=== PATIENT | female | born 1950 | race Caucasian/White ===

== ENCOUNTER 2020-02-20 11:11 | Inpatient (IN) | payer MEDICARE, OTHER ==
[~2020-02-20] VITALS: Ht 165.1 cm; Wt 68.0 kg
[2020-02-20] MEDS ORDERED: ONDANSETRON HCL INJ 2MG/ML 2ML 2 MG/ML VIAL IV STA (12:15)
[2020-02-20] MEDS ORDERED: MORPHINE SULFATE 2 MG/ML SYR 1ML IV STA (12:15)
[2020-02-20] MEDS ORDERED: SODIUM CHLORIDE 0.9% 1000ML 1,000 ML IV STA ×2 (12:15)
[2020-02-20] MEDS ORDERED: PANTOPRAZOLE 40 MG 10ML VIAL IV STA (12:15)
--- OUTSIDE RECORDS SUMMARY | 2020-02-20 12:26 | XMS REPORT | Continuity of Care Document ---
Author Author [facility] t Organization [facility] Address [address] [place] [address] Phone Unavailable Care Team Providers Care Viscosity Inspector Name Role Phone Unavailable Unavailable Payers Payer Name Policy Type Policy Number Effective Date Expiration Date S ource Problems This patient has no known problems. Allergies, Adverse Reactions, Alerts Allergy Name Allergy Type Status Severity Reaction(s) Onset Date Inacti ve Date Treating Clinician Comments Source No Known Allergies DA Active U 2020-02-17 00:00:00 [facility] No Known Allergies DA Active U 2016-10-22 00:00:00 [facility] Medications This patient has no known medications. Procedures This patient has no known procedures. Results Test Description Test Time Test Comments Results Result Comments Source - CT ABD PELVIS W/CONT 2020-02-17 09:39:00 Kike e: BRYN CANCINO [facility] FSED : 1950 Age/S: 69 / F [address] [facility] [address] Unit #: [id number] Loc: [address] Phys: William Alcantar MD [place], [place] [address] Acct: [id number] Dis Date: Status: REG ER PHONE #: Exam Date: 02/17/2020 0853 FAX #: Reason: r sided abd pain, constipation, n/v EXAMS: CPT CODE: [id number] CT ABD PELVIS W/CONT 68762 REASON FOR EXAM: r sided abd pain, constipation, n/v EXAM ORDER DATE: 02/17/2020 8:17 AM Ordering M.DGenoveva: William Alcantar MD PROCEDURE: Axial CT images were acquired through the abdomen/pelvis at 5 mm intervals. Sagittal and coronal reformatted images were generated. Automated exposure control was utilized for this reduction. Phases of contrast: venous and delayed COMPARISON: CT of the abdomen and pelvis October 22, 2016 FINDINGS: Visualized thorax: Mild subsegmental atelectasis in the lingula Hepatobiliary system: Normal Pancreas: Atrophic with mild fatty replacement Spleen: Normal Adrenal glands: Normal Genitourinary system: Prior hysterectomy. Otherwise normal Gastrointestinal tract and appendix: The ascending colon is displaced and located in the midline, also seen on the previous examination.. There is increased mucosal enhancement of the small bowel in the right hemiabdomen. Small hiatal her freeman is present Abdominal vascular structures: Mild atherosclerotic calcifications are present in the abdominal aorta and extend into the iliac arteries Peritoneum and retroperitoneum: No free fluid or free air. No omental or mesenteric masses. No abnormal lymph nodes. Musculoskeletal structures and abdominal wall: Levoscoliosis of the lumbar spine IMPRESSION: Increased mucosal enhancement of the small bowel in the right PAGE 1 Signed Report (CONTINUED) Name: BRYN CANCINO [facility] FSED : 1950 Age/S: 69 / F [address] [facility] Unit #: [id number] Loc: [address] Phys: William Alcantar MD [place], [place] [address] Acct: [id number] Dis Date: Status: REG ER PHONE #: Exam Date: 02/17/2020 0892 FAX #: Reason: r sided abd pain, constipation, n/v EXAMS: CPT CODE: [id number] CT ABD PELVIS W/CONT 42022 <Continued> hemiabdomen. This may represent an infectious or inflammatory enteritis. Displacement of the ascending colon into the midline is again seen and unchanged from the previous exam. Location: [facility] at 0939 Reported and signed by: Gaston Jackson MD CC: William Alcantar MD; Chelita Malik Technologist:Capo Gee CTDI: DLP: Trnscb Date/Time: 02/17/2020 (938) [email or web address] Orig Print D/T: S: 02/17/2020 (0177) PAGE 2 Signed Report URINALYSIS COMPLETE 2020-02-17 09:11:00 Test Item UA COLOR (test code = COLU) YELLOW YELLOW UA APPEARANCE (test code = APPU) CLEAR CLEAR UA GLUCOSE DIPSTICK (test code = DGLUU) NEGATIVE mg/dL NEGATIVE UA BILIRUBIN DIPSTICK (test code = BILU) NEGATIVE NEGATIVE UA KETONE DIPSTICK (test code = KETU) NEGATIVE mg/dL NEGATIVE UA SPECIFIC GRAVITY (test code = SGU) >=1.030 1.001-1.035 UA BLOOD DIPSTICK (test code = TRACY) 2+ (Moderate) NEGATIVE A UA PH DIPSTICK (test code = ALBERTO) 6.0 5.0-8.0 UA PROTEIN DIPSTICK (test code = PROU) NEGATIVE mg/dL Neg-15 UA UROBILINIOGEN DIPSTICK (test code = URO) 0.2 mg/dL 0.0-0.2 UA NITRITE DIPSTICK (test code = ROXANE) NEGATIVE NEGATIVE UA LEUKOCYTE ESTERASE DIPSTICK (test code = LEUU) NEGATIVE uL NEGA TIVE UA MICROSCOPIC NEEDED? (test code = UAMICRO) YES UA WBC (test code = WBCU) 0-5 per HPF 0-5 UA RBC (test code = RBCU) 3-5 per HPF 0-5 A UA EPITHELIAL CELLS (test code = EPIU) Few (2-5/hpf) per HPF Few UA BACTERIA (test code = BACU) FEW per HPF NONE UA MUCUS (test code = MUCU) FEW per LPF NONE-FEW Urine Source? Clean CatchURINALYSIS [id number] 09:10:00* Test Item Value Reference Range Interpretation Comments UA COLOR (test code = COLU) YELLOW YELLOW UA APPEARANCE (test code = APPU) CLEAR CLEAR UA GLUCOSE DIPSTICK (test code = DGLUU) NEGATIVE mg/dL NEGATIVE UA BILIRUBIN DIPSTICK (test code = BILU) NEGATIVE NEGATIVE UA KETONE DIPSTICK (test code = KETU) NEGATIVE mg/dL NEGATIVE UA SPECIFIC GRAVITY (test code = SGU) >=1.030 1.001-1.035 UA BLOOD DIPSTICK (test code = TRACY) 2+ (Moderate) NEGATIVE A UA PH DIPSTICK (test code = ALBERTO) 6.0 5.0-8.0 UA PROTEIN DIPSTICK (test code = PROU) NEGATIVE mg/dL Neg-15 UA UROBILINIOGEN DIPSTICK (test code = URO) 0.2 mg/dL 0.0-0.2 UA NITRITE DIPSTICK (test code = ROXANE) NEGATIVE NEGATIVE UA LEUKOCYTE ESTERASE DIPSTICK (test code = LEUU) NEGATIVE uL NEGA TIVE UA MICROSCOPIC NEEDED? (test code = UAMICRO) UA WBC (test code = WBCU) per HPF 0-5 UA RBC (test code = RBCU) per HPF 0-5 UA EPITHELIAL CELLS (test code = EPIU) per HPF Few UA BACTERIA (test code = BACU) per HPF NONE Urine Source? Clean [id number] 09:07:00* Test Item Value Reference Range Interpretation Comments TROPONIN-I (test code = TROPI) <0.015 ng/mL 0-0.045 N BASIC METABOLIC [id number] 09:06:00* Test Item Value Reference Range Interpretation Comments SODIUM (test code = NA) 142 mmol/L 128-145 N POTASSIUM (test code = K) 3.3 mmol/L 3.5-5.1 L CHLORIDE (test code = CL) 105.0 mmol/L 98-107 N CARBON DIOXIDE (test code = CO2) 31.0 mmol/L 22-29 H ANION GAP (test code = GAP) 9 mmol/L 10-20 L GLUCOSE (test code = GLU) 99 mg/dL 70-110 N BLOOD UREA NITROGEN (test code = BUN) 23 mg/dL 7-22 H GLOMERULAR FILTRATION RATE (test code = GFR) 52 mL/min >=60 Estimated GFR by using Modified MDRD formula.Chronic kidney disease is defined as either kidney damageor GFR <60 mL/min/1.73 m2 for >3 months. CREATININE (test code = CREAT) 1.06 mg/dL 0.55-1.3 N BUN/CREATININE RATIO (test code = BUN/CREA) 21.7 10-20 H CALCIUM (test code = CA) 8.4 mg/dL 8.0-10.5 N HEPATIC FUNCTION [id number] 09:06:00* Test Item Value Reference Range Interpretation Comments TOTAL PROTEIN (test code = PROT) 7.5 gram/dL 6.1-7.8 N ALBUMIN (test code = ALB) 3.8 g/dL 3.3-4.4 N GLOBULIN (test code = GLOB) 3.7 G/DL 1-10 N ALBUMIN/GLOBULIN RATIO (test code = A/G) 1.0 0.75-1.50 N BILIRUBIN TOTAL (test code = BILT) 0.40 mg/dL 0.2-1.2 N BILIRUBIN DIRECT (test code = BILD) 0.10 mg/dL 0.0-0.30 N SGOT/AST (test code = AST) 21 U/L 10-39 N SGPT/ALT (test code = ALT) 16 U/L 10-69 N ALKALINE PHOSPHATASE TOTAL (test code = ALKP) 114 U/L 50-139 N [id number] 09:06:00* Test Item Value Reference Range Interpretation Comments LIPASE (test code = LIP) 283 Unit/L 144-286 N BASIC METABOLIC [id number] 08:44:00* Test Item Value Reference Range Interpretation Comments SODIUM (test code = NA) 142 mmol/L 128-145 N POTASSIUM (test code = K) 3.3 mmol/L 3.5-5.1 L CHLORIDE (test code = CL) 105.0 mmol/L 98-107 N CARBON DIOXIDE (test code = CO2) 31.0 mmol/L 22-29 H ANION GAP (test code = GAP) 9 mmol/L 10-20 L GLUCOSE (test code = GLU) 99 mg/dL 70-110 N BLOOD UREA NITROGEN (test code = BUN) 23 mg/dL 7-22 H GLOMERULAR FILTRATION RATE (test code = GFR) 52 mL/min >=60 Estimated GFR by using Modified MDRD formula.Chronic kidney disease is defined as either kidney damageor GFR <60 mL/min/1.73 m2 for >3 months. CREATININE (test code = CREAT) 1.06 mg/dL 0.55-1.3 N BUN/CREATININE RATIO (test code = BUN/CREA) 21.7 10-20 H CALCIUM (test code = CA) 8.4 mg/dL 8.0-10.5 N HEPATIC FUNCTION [id number] 08:44:00* Test Item Value Reference Range Interpretation Comments TOTAL PROTEIN (test code = PROT) gram/dL 6.4-8.2 ALBUMIN (test code = ALB) g/dL 3.4-5.0 GLOBULIN (test code = GLOB) G/DL 1-10 ALBUMIN/GLOBULIN RATIO (test code = A/G) 0.75-1.50 BILIRUBIN TOTAL (test code = BILT) mg/dL 0.0-1.0 BILIRUBIN DIRECT (test code = BILD) mg/dL 0.0-0.20 SGOT/AST (test code = AST) IUnit/L 15-37 SGPT/ALT (test code = ALT) IUnit/L 12-78 ALKALINE PHOSPHATASE TOTAL (test code = ALKP) IUnit/L 45-117 [id number] 08:44:00* Test Item Value Reference Range Interpretation Comments LIPASE (test code = LIP) U/L 73.0-393.0 CBC W/O [id number] 08:43:00* Test Item Value Reference Range Interpretation Comments WHITE BLOOD CELL (test code = WBC) 4.9 K/mm3 4.5-12.5 N RED BLOOD CELL (test code = RBC) 5.07 mill/mm3 3.7-5.2 N HEMOGLOBIN (test code = HGB) 14.3 gram/dL 11.5-15.5 N HEMATOCRIT (test code = HCT) 45.8 % 36.0-46.0 N MEAN CELL VOLUME (test code = MCV) 90.3 fL 80-98 N MEAN CELL HGB (test code = MCH) 28.2 picogram 27.0-33.0 N MEAN CELL HGB CONCETRATION (test code = MCHC) 31.2 gram/dL 33.0-36. 0 L RED CELL DISTRIBUTION WIDTH (test code = RDW) 13.0 % 11.6-16. 2 N RED CELL DISTRIBUTION WIDTH SD (test code = RDW-SD) 44.5 fL 37 .0-51.0 N PLATELET COUNT (test code = PLT) 146 K/mm3 150-450 L MEAN PLATELET VOLUME (test code = MPV) 9.3 fL 6.7-11.0 N
[2020-02-20 12:27] LABS: BASOPHILS # (AUTO) 0.1 (0.0-0.1); BASOPHILS % 0.4 % (0.0-1.0); EOSINOPHILS % 0.1 % (0.0-6.0); HEMATOCRIT 55.5 % (34.2-44.1); LYMPHOCYTES # (AUTO) 1.1 (1.0-3.2); LYMPHOCYTES % 8.3 % (18.0-39.1); MEAN CORPUSCULAR HEMOGLOBIN 28.3 pg (28-32); MEAN CORPUSCULAR HGB CONC 32.4 g/dL (31-35); MEAN CORPUSCULAR VOLUME 87.4 fL (81-99); MONOCYTES % 7.6 % (4.4-11.3); NEUTROPHILS # (AUTO) 11.2 (2.1-6.9); NEUTROPHILS % 83.2 % (38.7-80.0); PLATELET COUNT 239 x10e3/uL (140-360); RED BLOOD COUNT 6.35 x10e6/uL (3.6-5.1); RED CELL DISTRIBUTION WIDTH 14.3 % (11.7-14.4)
--- NOTE | 2020-02-20 12:45 | Diagnostic Imaging Report ---
TECHNIQUE: Frontal view of the chest. INDICATION: ^abd pain ^[id number] ^1226 COMPARISON: None DISCUSSION: Limited evaluation due to portable technique. Lines and hardware: Overlying EKG leads are noted. Heart and mediastinum: Cardiac silhouette is within normal limits for size. Trachea projects midline. Vascularity is within normal limits. Lungs and pleura: No focal airspace consolidation. No pleural effusion. No pneumothorax. Mild basilar atelectasis is noted at the medial lung bases. Soft tissues and bones: No acute abnormality. IMPRESSION: Negative for acute intrathoracic process. Signed by: Rainer Bates MD on 02/20/2020 12:42 PM
[2020-02-20 13:06] LABS: INR 0.95; PROTHROMBIN TIME 13.2 seconds (11.9-14.5)
[2020-02-20 13:07] LABS: PARTIAL THROMBOPLASTIN TIME 25.7 seconds (23.8-35.5)
[2020-02-20 13:18] LABS: ALBUMIN 4.6 g/dL (3.5-5.0); ALBUMIN/GLOBULIN RATIO 1.1 (0.8-2.0); ANION GAP 26.4 mmol/L (8-16); CALCIUM 9.8 mg/dL (8.4-10.2); CREATININE, SERUM 4.03 mg/dL (0.57-1.11); MAGNESIUM 2.3 MG/DL (1.3-2.1); POTASSIUM 4.4 mmol/L (3.5-5.1)
[2020-02-20 13:24] LABS: CREATINE KINASE MB 3.5 ng/mL (0-5.0)
[2020-02-20] MEDS ORDERED: DIATRIZOATE MEGL/DIATRIZOA SOD 30 ML BTL PO ONE (13:41)
[2020-02-20] MEDS ORDERED: PIPER-TAZ 3.375 GM 50 ML IV SCH (14:00)
[2020-02-20] MEDS ORDERED: PROMETHAZINE HCL (IM) 25 MG/ML VIAL IM ONE (14:59)
[2020-02-20] MEDS ORDERED: PROMETHAZINE 12.5MG/ NACL 0.9% 12.5 MG/50 ML BAG IV ONE (15:00)
--- NOTE | 2020-02-20 15:22 | Diagnostic Imaging Report ---
EXAM: CT Abdomen and Pelvis WITHOUT intravenous contrast INDICATION: Nausea and vomiting COMPARISON: None. TECHNIQUE: Abdomen and pelvis were scanned utilizing a multidetector helical scanner from the lung base to the pubic symphysis without administration of IV contrast. Coronal and sagittal reformations were obtained. Routine technique was performed. IV CONTRAST: None ORAL CONTRAST: Gastrografin COMPLICATIONS: None RADIATION DOSE: Total DLP: 270 mGy*cm Dose modulation, iterative reconstruction, and/or weight based adjustment of the mA/kV was utilized to reduce the radiation dose to as low as reasonably achievable. FINDINGS: Evaluation is limited due to lack of IV and and small amount of oral contrast ingested. LOWER THORAX: Normal. HEPATOBILIARY: No focal hepatic lesions. No biliary ductal dilatation. The gallbladder appears unremarkable. SPLEEN: No splenomegaly. PANCREAS: No focal masses or ductal dilatation. ADRENALS: No adrenal nodules. KIDNEYS/URETERS: No hydronephrosis, stones, or solid mass lesions. PELVIC ORGANS/BLADDER: Urinary bladder is decompressed limiting evaluation. Uterus and ovaries are surgically absent. PERITONEUM / RETROPERITONEUM: No free air or fluid. LYMPH NODES: No lymphadenopathy. VESSELS: Unremarkable. GI TRACT: Limited evaluation due to lack of IV contrast. Moderate hiatal hernia is noted. Contrast is identified within the stomach and duodenum. Malrotation is noted with the small bowel loops centered within the right upper to mid abdomen. The right colon is identified in the midline coursing superiorly. The colon is predominantly located on the left side of the abdomen. There are focal dilated small bowel loops in the right upper quadrant with fluid filled mildly prominent small bowel loops in the right lower quadrant. No discrete transition point is identified distally or proximally. The duodenum and jejunum are dilated. The terminal ileum is not dilated. Colon is decompressed limiting evaluation. No surrounding inflammatory changes are identified. BONES AND SOFT TISSUES: Negative for acute osseous abnormality. Left convex rotoscoliosis of the lumbar spine is noted. No suspicious lytic or blastic lesion. Advanced degenerative changes of the lumbar spine are noted. Soft tissues are unremarkable. IMPRESSION: Limited due to lack of IV contrast. Also only a small amount of oral contrast is identified within the stomach and proximal duodenum 1. Dilated and fluid-filled small bowel loops within the right upper to mid abdomen. No discrete transition point is identified. The duodenum and jejunum are dilated and fluid-filled. The ileum is decompressed. Findings are concerning for focal infection/ileus versus partial small bowel obstruction. Negative for pneumoperitoneum. 2. Underlying congenital malrotation, the small bowel loops are located in the right hemiabdomen and the colon is located in the left hemiabdomen. 3. Moderate hiatal hernia. Signed by: Rainer Bates MD on 02/20/2020 3:19 PM
[2020-02-20] MEDS ORDERED: BENZOCAINE/TETRACAINE/BUTAMBEN AERO SPRAY 56 GM CAN TOP ONE (16:00)
--- NOTE | 2020-02-20 16:06 | Emergency Department Note ---
History of Present Illnes History of Present Illness Chief Complaint: COVID PUI History of Present Illness This is a 69 year old female X 3 DAYS, C/O OF RIGHT UPPER QUADRANT PAIN THAT RADIATES ALL OVER ABDOMEN. STATES SHE HAS VOMITED 100 TIMES. NO BM X 3 DAYS AFC, TOLD SHE HAD COLITIS AND SENT HOME WITH BATRIM/FLAGYL WENT TO PATIENTS IN [place] AND TOLD SHE HAD FLUID IN THE INTESTINES. Historian: Patient Arrival Mode: Car Additional Treatment JINRIKSHA DRIVER: ZOFRAN Environmental Designer Required: No Onset (how long ago): day(s) (3) Location: ABDOMEN Quality: PAIN Radiation: Reports non-radiation Severity: moderate Onset quality: gradual Timing of current episode: constant Progression: worsening Chronicity: new Context: Denies recent illness Relieving factors: none Exacerbating factors: none Associated symptoms: Reports nausea/vomiting, Reports other (NO BM X 3 DAYS) Past Medical/Family History Physician Review I have reviewed the patient's past medical and family history. Any updates have been documented here. Past Medical History Recent Fever: No Clinical Suspicion of Infectio: No New/Unexplained Change in Ment: No Past Medical History: Hypertension Past Surgical History: Appendectomy, Hysterectomy, T&A Social History Smoking Cessation: Never Smoker Alcohol Use: Occasional Any Illegal Drug Use: No TB Exposure/Symptoms: No Physically hurt or threatened: No Family History Family history of heart diseas: No Other Any Pre-Existing Lines (PICC,: No Review of Systems Review of Systems Constitutional: Reports no symptoms EENTM: Reports no symptoms Cardiovascular: Reports no symptoms Respiratory: Reports no symptoms Gastrointestinal: Reports as per HPI Genitourinary: Reports no symptoms Musculoskeletal: Reports no symptoms Integumentary: Reports no symptoms Neurological: Reports no symptoms Psychological: Reports no symptoms Endocrine: Reports no symptoms Hematological/Lymphatic: Reports no symptoms Physical Exam Related Data Allergies: Coded Allergies: No Known Allergies (Unverified , 02/20/20) Triage Vital Signs Vital Signs Date Time Temp Pulse Resp B/P (MAP) Pulse Ox O2 Delivery O2 Flow Rate FiO2 02/20/20 11:43 97.9 113 18 74/59 99 Room Air Vital signs reviewed: Yes Physical Exam CONSTITUTIONAL Constitutional: Present well-developed, Present well-nourished HENT HENT: Present normocephalic, Present atraumatic, Present mucosae dry HENT L/R: Present left ext ear normal, Present right ext ear normal EYES Eyes: Reports PERRL, Reports conjunctivae normal NECK Neck: Present ROM normal PULMONARY Pulmonary: Present effort normal, Present breath sounds normal CARDIOVASCULAR Cardiovascular: Present regular rhythm, Present heart sounds normal, Present capillary refill normal, Present normal rate GASTROINTESTINAL Abdominal: Present soft, Present distension (MILD DISTENSION, NOT HYPERTYMPANIC BUT DECR BOWEL SOUNDS), Present tender (MILD DIFFUSE TENDERNESS WITHOUT R/G); Absent guarding, Absent rebound GENITOURINARY Genitourinary: Present exam deferred SKIN Skin: Present warm, Present dry MUSCULOSKELETAL Musculoskeletal: Present ROM normal NEUROLOGICAL Neurological: Present alert, Present oriented x 3, Present no gross motor or sensory deficits PSYCHOLOGICAL Psychological: Present mood/affect normal, Present judgement normal Results Laboratory Result Diagram: 02/20/20 1211 02/20/20 1240 Laboratory Laboratory Tests Test 02/20/20 12:40 02/20/20 12:11 Prothrombin Time 13.2 seconds (11.9-14.5) Prothromb Time International Ratio 0.95 Activated Partial Thromboplast Time 25.7 seconds (23.8-35.5) Sodium Level 137 mmol/L (136-145) Potassium Level 4.4 mmol/L (3.5-5.1) Chloride Level 90 mmol/L (98-107) Carbon Dioxide Level 25 mmol/L (22-29) Anion Gap 26.4 mmol/L (8-16) Blood Urea Nitrogen 35 mg/dL (7-26) Creatinine 4.03 mg/dL (0.57-1.11) Estimat Glomerular Filtration Rate 11 ML/MIN (60-) BUN/Creatinine Ratio 9 (6-25) Glucose Level 151 mg/dL (74-118) Lactic Acid Level 3.5 mmol/L (0.5-2.0) Calcium Level 9.8 mg/dL (8.4-10.2) Magnesium Level 2.3 MG/DL (1.3-2.1) Total Bilirubin 0.7 mg/dL (0.2-1.2) Aspartate Amino Transf (AST/SGOT) 23 IU/L (5-34) Alanine Aminotransferase (ALT/SGPT) 14 IU/L (0-55) Alkaline Phosphatase 107 IU/L (40-150) Creatine Kinase 111 IU/L (29-168) Creatine Kinase MB 3.50 ng/mL (0-5.0) Troponin I 0.054 ng/mL (0-0.300) Total Protein 8.7 g/dL (6.5-8.1) Albumin 4.6 g/dL (3.5-5.0) Globulin 4.1 g/dL (2.3-3.5) Albumin/Globulin Ratio 1.1 (0.8-2.0) Amylase Level 86 U/L (25-125) Lipase 29 U/L (8-78) White Blood Count 13.48 x10e3/uL (4.8-10.8) Red Blood Count 6.35 x10e6/uL (3.6-5.1) Hemoglobin 18.0 g/dL (12.0-16.0) Hematocrit 55.5 % (34.2-44.1) Mean Corpuscular Volume 87.4 fL (81-99) Mean Corpuscular Hemoglobin 28.3 pg (28-32) Mean Corpuscular Hemoglobin Concent 32.4 g/dL (31-35) Red Cell Distribution Width 14.3 % (11.7-14.4) Platelet Count 239 x10e3/uL (140-360) Neutrophils (%) (Auto) 83.2 % (38.7-80.0) Lymphocytes (%) (Auto) 8.3 % (18.0-39.1) Monocytes (%) (Auto) 7.6 % (4.4-11.3) Eosinophils (%) (Auto) 0.1 % (0.0-6.0) Basophils (%) (Auto) 0.4 % (0.0-1.0) Neutrophils # (Auto) 11.2 (2.1-6.9) Lymphocytes # (Auto) 1.1 (1.0-3.2) Monocytes # (Auto) 1.0 (0.2-0.8) Eosinophils # (Auto) 0.0 (0.0-0.4) Basophils # (Auto) 0.1 (0.0-0.1) Absolute Immature Granulocyte (auto 0.05 x10e3/uL (0-0.1) Lab results reviewed: Yes Imaging Imaging results reviewed: Yes Procedures 12 Lead ECG Interpretation ECG Interpretation : ECG: ECG 1 Environmental Designer: Interpreted by ED physician Date: Feb 20, 2020 Time: 12:53 Rhythm: sinus rhythm Rate: normal (77) QRS axis: normal ST segments normal: Yes T waves normal: Yes Q waves: II, III, aVF, V5, V6 Clinical Impression: abnormal ECG Additional Comments POOR RWP Assessment & Plan Medical Decision Making MDM ABD PAIN, N/V/CONSTIPATION AND APPEARS DEHYDRATED - CBC, CHEM, UA, CX'S, LACTIC, ECG, CARDIACS, CXR, CT A/P - EVAL FOR SEPSIS, BOWEL OBSTRUCTION, ELECTROLYTE ABNL, RENAL INSUFF, SEPSIS, COLITIS, DIVERTICULITIS. IVF RESUSCITATION, REASSESS Reassessment Reassessment ADMIT TO DR LOPEZ - HE WILL TAKE CARE OF CONSULTANTS Assessment & Plan Final Impression: (1) Dehydration (2) Renal failure (3) Abdominal pain Depart Disposition: ADMITTED Last Vital Signs Date Time Temp Pulse Resp B/P (MAP) Pulse Ox O2 Delivery O2 Flow Rate FiO2 02/20/20 13:03 81 19 106/63 99 Room Air 02/20/20 11:43 97.9 Medications in the ED Pantoprazole Sodium 40 mg ONCE STAT IV Last administered on 02/20/20at 12:20; Admin Dose 40 MG; Start 02/20/20 at 12:15; Stop 02/20/20 at 12:21; Status DC Morphine Sulfate 2 mg ONCE STAT IV Last administered on 02/20/20at 12:20; Admin Dose 2 MG; Start 02/20/20 at 12:15; Stop 02/20/20 at 12:21; Status DC Ondansetron HCl 4 mg ONCE STAT IV Last administered on 02/20/20at 12:20; Admin Dose 4 MG; Start 02/20/20 at 12:15; Stop 02/20/20 at 12:21; Status DC Sodium Chloride 1,000 ml @ 0 mls/hr Q0M STAT IV Last administered on 02/20/20at 12:24; Admin Dose 1,000 MLS/HR; Start 02/20/20 at 12:15; Stop 02/20/20 at 12:18; Status DC Sodium Chloride 1,000 ml @ 0 mls/hr Q0M STAT IV Last administered on 02/20/20at 12:24; Admin Dose 1,000 MLS/HR; Start 02/20/20 at 12:15; Stop 02/20/20 at 12:18; Status DC Piperacillin Sod/ Tazobactam Sod 50 ml @ 50 mls/hr 0200,0800,1400,1999 IV Last administered on 02/20/20at 15:25; Admin Dose 50 MLS/HR; Start 02/20/20 at 14:00; Stop 02/27/20 at 13:59 Diatrizoate Meglum/ Diatrizoate Sod 30 ml STK-MED ONCE PO ; Start 02/20/20 at 13:41; Stop 02/20/20 at 13:35; Status DC Promethazine HCl 25 mg STK-MED ONCE IM ; Start 02/20/20 at 14:59; Stop 02/20/20 at 14:53; Status DC RENA CISSE MD Feb 20, 2020 16:06
[2020-02-20] MEDS ORDERED: BENZOCAINE/TETRACAINE/BUTAMBEN AERO SPRAY 56 GM CAN ONE (16:33)
--- OUTSIDE RECORDS SUMMARY | 2020-02-20 16:52 | XMS REPORT | Continuity of Care Document ---
Author Author [facility] t Organization [facility] Address [address] [place] [address] Phone Unavailable Care Team Providers Care Pilot Safety Inspector Name Role Phone Rodolfo CISSE Attphys Unavailable Payers Payer Name Policy Type Policy Number Effective Date Expiration Date S ource Problems This patient has no known problems. Allergies, Adverse Reactions, Alerts Allergy Name Allergy Type Status Severity Reaction(s) Onset Date Inacti ve Date Treating Clinician Comments Source No Known Allergies DA Active U 2020-02-17 00:00:00 [facility] No Known Allergies DA Active U 2016-10-22 00:00:00 [facility] Medications This patient has no known medications. Procedures This patient has no known procedures. Results Test Description Test Time Test Comments Results Result Comments Source CT ABDOMEN/PELVIS WO 2020-02-20 15:12:00 [place] [address] Patient Name: BRYN CANCINO MR #: [id number] : 1950 Age/Sex: 69/F Req #: [id number] Adm Physician: Ordered by: RENA CISSE MD Report #: [id number] Location: ER Room/Bed: Procedure: [id number] CT/CT ABDOMEN/PELVIS WO Exam Date: 02/20/20 Exam Time: 1445 REPORT STATUS: Signed EXAM: CT Abdomen and Pelvis WITHOUT intravenous contrast INDICATION: Nausea and vomiting COMPARISON: None. TECHNIQUE: Abdomen and pelvis were scanned utilizing a multidetector helical scanner from the lung base to the pubic symphysis without administr ation of IV contrast. Coronal and sagittal reformations were obtained. Routine technique was performed. IV CONTRAST: None ORAL CONTRAST: Gastrografin COMPLICATIONS: None RADIATION DOSE: Total DLP: 270 mGy*cm Dose modulation, iterative reconstruction, and/or weight based adjustment of the mA/kV was utilized to reduce the radiation dose to as low as reasonably achievable. FINDINGS: Evaluation is limited due to lack of IV and and small amount of oral contrast ingested. LOWER THORAX: Normal. HEPATOBILIARY: No focal hepatic lesions. No biliary ductal dilatation. The gallbladder appears unremarkable. SPLEEN: No splenomegaly. PANCREAS: No focal masses or ductal dilatation. ADRENALS: No adrenal nodules. KIDNEYS/URETERS: No hydronephrosis, stones, or solid mass lesions. PELVIC ORGANS/BLADDER: Urinary bladder is decompressed limiting evaluation. Uterus and ovaries are surgically absent. PERITONEUM / RETROPERITONEUM: No free air or fluid. LYMPH NODES: No lymphadenopathy. VESSELS: Unremarkable. GI TRACT: Limited evaluation due to lack of IV contrast. Moderate hiatal hernia is noted. Contrast is identified within the stomach and duodenum. Malrotation is noted with the small bowel loops centered within the right upper to mid abdomen. The right colon is identified in the midline coursing superiorly. The colon is predominantly located on the left side of the abdomen. There are focal dilated small bowel loops in the right upper quadrant with fluid filled mildly prominent small bowel loops in the right lower quadrant. No discrete transition point is identified distally or proximally. The duodenum and jejunum are dilated. The terminal ileum is not dilated. Colon is decompressed limiting evaluation. No surrounding inflammatory changes are identified. BONES AND SOFT TISSUES: Negative for acute osseous abnormality. Left convex rotoscoliosis of the lumbar spine is noted. No suspicious lytic or blastic lesion. Advanced degenerative changes of the lumbar spine are noted. Soft tissues are unremarkable. IMPRESSION: Limited due to lack of IV contrast. Also only a small amount of oral contrast is identified within the stomach and proximal duodenum 1. Dilated and fluid- filled small bowel loops within the right upper to mid abdomen. No discrete transition point is identified. The duodenum and jejunum are dilated and fluid-filled. The ileum is decompressed. Findings are concerning for focal infection/ileus versus partial small bowel obstruction. Negative for pneumoperitoneum. 2. Underlying congenital malrotation, the small bowel loops are located in the right hemiabdomen and the colon is located in the left hemiabdomen. 3. Moderate hiatal hernia. Signed by: Dwayne Bates MD on 02/20/2020 3:19 PM Dictated By: DWAYNE BATES MD 18 Transcribed By: RIZWANA on 02/20/201518 COPY TO: RENA CISSE MD CHEST SINGLE (PORTABLE) 2020-02-20 12:41:00 [place] [address] Patient Name: BRYN CANCINO MR #: [id number] : 1950 Age/Sex: 69/F Req #: [id number] Adm Physician: Ordered by: RENA CISSE MD Report #: [id number] Location: ER Room/Bed: Procedure: [id number] DX/CHEST SINGLE (PORTABLE) Exam Date: 02/20/20 Exam Time: 1226 REPORT STATUS: Signed TECHNIQUE: Frontal view of the chest. INDICATION: abd pain [id number] 1226 COMPARISON: None DISCUSSION: Limited evaluation due to portable technique. Lines and hardware: Overlying EKG leads are noted. Heart and mediastinum: Cardiac si lhouette is within normal limits for size. Trachea projects midline. Vascularity is within normal limits. Lungs and pleura: No focal airspace consolidation. No pleural effusion. No pneumothorax. Mild basilar atelectasis is noted at the medial lung bases. Soft tissues and bones: No acute abnormality. IMPRESSION: Negative for acute intrathoracic process. Signed by: Dwayne Bates MD on 02/20/2020 12:42 PM Dictated By: DWAYNE BATES MD 124 Transcribed By: RIZWANA on 02/20/201241 COPY TO: RENA CISSE MD - CT ABD PELVIS W/CONT 2020-02-17 09:39:00 Nam e: BRYN CANCINO [facility] FSED : 1950 Age/S: 69 / F [address] [facility] Unit #: [id number] Loc: [address] Phys: William Alcantar MD [place], [place] [address] Acct: [id number] Dis Date: Status: REG ER PHONE #: Exam Date: 02/17/2020 08 FAX #: Reason: r sided abd pain, constipation, n/v EXAMS: CPT CODE: [id number] CT ABD PELVIS W/CONT 02521 REASON FOR EXAM: r sided abd pain, constipation, n/v EXAM ORDER DATE: 02/17/2020 8:17 AM Ordering M.D.: William Alcantar MD PROCEDURE: Axial CT images [...] 1 Signed Report (CONTINUED) Name: BRYN CANCINO FSED : 1950 Age/S: 69 / F [address] [address] Unit #: [id number] Loc: [address] Phys: William Alcantar MD [place], [place] [address] Acct: [id number] Dis Date: Status: REG ER PHONE #: Exam Date: 02/17/2020 5834 FAX #: Reason: r sided abd pain, constipation, n/v EXAMS: CPT CODE: [id number] CT ABD PELVIS W/CONT 68[address] <Continued> hemiabdomen. This may represent an infectious or inflammatory enteritis. Displacement of the ascending colon into the midline is again seen and unchanged from the previous exam. Location: [facility] at 0939 Reported and signed by: Gaston Jackson MD CC: William Alcantar MD; Chelita Malik Technologist:Capo Gee CTDI: DLP: Trnscb Date/Time: 02/17/2020 (0939) [email or web address] Orig Print D/T: S: 02/17/2020 (0942) PAGE 2 Signed Report URINALYSIS COMPLETE 2020-02-17 [...] per LPF NONE-FEW Urine Source? Clean CatchURINALYSIS [id number] 09:10:00* Test Item Value Reference Range Interpretation [...] BACU) per HPF NONE Urine Source? Clean [id number] 09:07:00* Test Item Value Reference Range Interpretation Comments TROPONIN-I (test code = TROPI) <0.015 ng/mL 0-0.045 N BASIC METABOLIC [id number] 09:06:00* Test Item Value Reference Range Interpretation [...] CA) 8.4 mg/dL 8.0-10.5 N HEPATIC FUNCTION [id number] 09:06:00* Test Item Value Reference Range Interpretation [...] code = ALKP) 114 U/L 50-139 N [id number] 09:06:00* Test Item Value Reference Range Interpretation Comments LIPASE (test code = LIP) 283 Unit/L 144-286 N BASIC METABOLIC [id number] 08:44:00* Test Item Value Reference Range Interpretation [...] CA) 8.4 mg/dL 8.0-10.5 N HEPATIC FUNCTION [id number] 08:44:00* Test Item Value Reference Range Interpretation [...] TOTAL (test code = ALKP) IUnit/L 45-117 [id number] 08:44:00* Test Item Value Reference Range Interpretation Comments LIPASE (test code = LIP) U/L 73.0-393.0 CBC W/O [id number] 08:43:00* Test Item Value Reference Range Interpretation [...]
[2020-02-20] MEDS: SODIUM CHLORIDE 0.9% 1000ML 1,000 ML IV SCH ×2 (16:53→23:40)
[2020-02-20] MEDS: METRONIDAZOLE 500MG/NS 100ML 100 ML IV SCH ×2 (16:53→23:45)
[2020-02-20] MEDS: MORPHINE SULFATE 2 MG/ML SYR 1ML IV PRN ×2 (16:53→23:00)
[2020-02-20 17:00] LABS: BILIRUBIN,URINE NEGATIVE (NEGATIVE); CLARITY,URINE SL CLOUDY (CLEAR); COLOR,URINE YELLOW (YELLOW); KETONES,URINE TRACE (NEGATIVE); LEUKOCYTE ESTERASE ,URINE NEGATIVE (NEGATIVE); NITRITE,URINE NEGATIVE (NEGATIVE); PROTEIN,URINE DIPSTICK 1+ (NEGATIVE); URINE UROBILINOGEN 0.2 mg/dL (0.2 - 1)
[2020-02-20 17:10] LABS: BACTERIA,URINE MANY /HPF
--- NOTE | 2020-02-20 17:53 | History and Physical ---
CHIEF COMPLAINT: "I can't stop vomiting." HISTORY OF PRESENT ILLNESS: This is a 69-year-old white woman, who presents to [facility] with a 3-4 day history of intractable nausea and vomiting. The patient also complains of intense midepigastric pain. The patient states she went to a local freestanding emergency room on Thursday, February 17, 2020, and was told she had colitis and was sent home with diagnosis of colitis. The patient states her symptoms only worsened over the weekend. In the emergency room, on this admission the patient was found have BUN and creatinine of 35 and 4.03 respectively. The patient's lactic acid level of 3.5. The patient's amylase and lipase were 86 and 29 respectively. The patient's serum bicarbonate was 25. The patient's potassium was 4.4. The patient's white blood cell count was 13,400 with 83% segmented neutrophils. Hemoglobin is 18 g/dL. The patient underwent a CT of the abdomen and pelvis in the emergency room without contrast that revealed moderate hiatal hernia as well as dilated fluid- filled small bowel loops within the right upper to mid abdomen. No discrete transition point was identified though. The duodenum and jejunum are dilated and fluid-filled. The ileum is decompressed. The radiologist felt these findings were concerning for focal infection/ileus versus partial small-bowel obstruction. No obvious pneumoperitoneum was appreciated on CT abdomen and pelvis. The patient was admitted for further evaluation and treatment. REVIEW OF SYSTEMS: GENERAL: Weight has been stable. No fever or chills. HEENT: No headaches. No vision changes. CARDIOVASCULAR SYSTEM: No chest pain. No shortness of breath or cough. GI: Intractable nausea and vomiting for last three to four days. No diarrhea. The patient states she has also had constipation for last six days. : No UTI symptoms. The patient stated she has urinated only minimally over the last few days. NEUROMUSCULAR: No limb weakness or numbness. PAST MEDICAL HISTORY: 1. Hypertensive heart disease. 2. Tobacco abuse. 3. Chronic bronchitis. 4. Urinary incontinence. PAST SURGICAL HISTORY: 1. Total abdominal hysterectomy with bilateral salpingo-oophorectomy in 1989. 2. Breast reduction in 1994. 2. Appendectomy and tonsillectomy as a child. FAMILY HISTORY: Mother has history of hypertension, COPD, and chronic back pain. SOCIAL HISTORY: This woman is , lives with . The patient is retired. She is a heavy tobacco smoker approximately one pack per day for the last 45 years. The patient denies any alcohol use. MEDICATIONS: 1. Lotrel 5/10 once daily. 2. Vitamin D3 5000 units daily. ALLERGIES: NO KNOWN DRUG ALLERGIES. PHYSICAL EXAMINATION: GENERAL: She is awake, alert and fully oriented. She is very pleasant and cooperative with exam. VITAL SIGNS: Height is 5 feet, 5 inches, weight is 150 pounds, BMI 25. Blood pressure is 106/63, on arrival in the emergency room 74/59, pulse currently is 82, on arrival to emergency room was 113, temperature 97.9, and oxygen saturation 99% on room air, respiratory rate 18. INTEGUMENTARY: Skin is warm and dry. No pallor, jaundice or diaphoresis. HEENT: Anicteric sclerae. Dry mucous membranes. The patient has a nasogastric tube in place. NECK: Supple. CARDIOVASCULAR: Tachycardic rate. Regular rate and rhythm with S4 gallop. LUNGS: No rales. No rhonchi or wheezes. ABDOMEN: Soft, it is somewhat distended. She has tenderness in the mid epigastric area. Bowel sounds are hypoactive. EXTREMITIES: No edema or deformity. NEUROLOGIC: Intact. DIAGNOSES: 1. Sepsis, likely secondary to ileitis. 2. Small bowel obstruction. 3. Hiatal hernia. 4. Hypertensive heart disease. 5. Tobacco abuse. 6. Chronic bronchitis. 7. Acute renal insufficiency from acute tubular necrosis. PLAN: 1. Hold blood pressure medications, particularly MARIANNE inhibitors since the patient has acute renal insufficiency. 2. Intravenous fluids. 3. Agree with nasogastric tube placement. 4. Consult General Surgery. 5. Continue intravenous antibiotics. 6. Follow renal function and electrolytes. 7. Repeat plain film abdominal series in the morning to assess likely bowel obstruction. 8. Urine for culture and stain as well as check for casts since she likely has acute tubular necrosis. I spent 50 minutes in care of the patient. MD LUKE Gonzalez/TAVIA /[id number] JOCE
[2020-02-20] MEDS: SODIUM CHLORIDE 0.9% 250ML IRRIG IR SCH ×3 (18:50→23:25)
[2020-02-20 19:42] LABS: AMPHETAMINES SCREEN,URINE NEGATIVE (NEGATIVE); BENZODIAZEPINES SCREEN,URINE NEGATIVE (NEGATIVE); PHENCYCLIDINE SCREEN,URINE NEGATIVE (NEGATIVE)
[2020-02-20 22:20] VITALS: BP 100/72
[2020-02-20] MEDS: ONDANSETRON HCL INJ 2MG/ML 2ML 2 MG/ML VIAL IV PRN (23:00)
[2020-02-20] MEDS: PIPERACILLIN/TAZO 2.25 GM 50 ML IV SCH (23:00)
[2020-02-20 23:40] VITALS: BP 100/72
[2020-02-20 23:45] VITALS: BP 100/72
[2020-02-21] VITALS (8 sets, daily range): BP systolic 92–119; BP diastolic 56–78
--- NOTE | 2020-02-21 | NUR ---
RECEIVED PATIENT FROM ER IN STABLE CONDITION, NO SIGNS OF DISTRESS NOTED. IV FLUIDS ARE RUNNING AT ORDERED RATE AND PATIENT VOICES PAIN AT A LEVEL OF 8, WAS MEDICATED ORDERED. NG TUBE IS INTACT AND RUNNING AT LOW SUCTION, URINARY CATHETER IS INTACT WELL, PATENT AND FLOWING, CLEAR YELLOW URINE NOTED. BED IS IN LOW POSITION, BOTH SIDE RAILS ARE UP, CALL LIGHT IS WITHIN EASY REACH, WILL CONTINUE TO MONITOR.
[2020-02-21] MEDS: SODIUM CHLORIDE 0.9% 250ML IRRIG IR SCH ×5 (05:00→20:34)
[2020-02-21 05:54] LABS: BASOPHILS % 0.2 % (0.0-1.0); EOSINOPHILS # (AUTO) 0.1 (0.0-0.4); EOSINOPHILS % 1.3 % (0.0-6.0); HEMATOCRIT 39.6 % (34.2-44.1); HEMOGLOBIN 12.5 g/dL (12.0-16.0); LYMPHOCYTES % 18.8 % (18.0-39.1); MEAN CORPUSCULAR HGB CONC 31.6 g/dL (31-35); MEAN CORPUSCULAR VOLUME 88.8 fL (81-99); MONOCYTES # (AUTO) 0.6 (0.2-0.8); MONOCYTES % 10.3 % (4.4-11.3); NEUTROPHILS # (AUTO) 3.8 (2.1-6.9); NEUTROPHILS % 69.2 % (38.7-80.0); PLATELET COUNT 132 x10e3/uL (140-360); RED BLOOD COUNT 4.46 x10e6/uL (3.6-5.1); RED CELL DISTRIBUTION WIDTH 13.8 % (11.7-14.4)
[2020-02-21] MEDS: METRONIDAZOLE 500MG/NS 100ML 100 ML IV SCH ×3 (06:17→20:34)
[2020-02-21 06:36] LABS: ANION GAP 17.1 mmol/L (8-16); CREATININE, SERUM 2.48 mg/dL (0.57-1.11)
[2020-02-21 06:37] LABS: CALCIUM 7.5 mg/dL (8.4-10.2); POTASSIUM 3.1 mmol/L (3.5-5.1)
[2020-02-21] MEDS: PIPERACILLIN/TAZO 2.25 GM 50 ML IV SCH ×3 (07:28→22:50)
--- NOTE | 2020-02-21 07:40 | NUR ---
RECEIVED BEDSIDE SHIFT REPORT FROM OFF GOING NURSE. PATIENT IS RESTING IN BED. NO ACUTE DISTRESS NOTED. CALL LIGHT WITHIN REACH. BED IN THE LOWEST POSITION.
[2020-02-21 07:44] LABS: ALBUMIN 3.7 g/dL (3.5-5.0); ALBUMIN/GLOBULIN RATIO 1.7 (0.8-2.0)
[2020-02-21] MEDS: MORPHINE SULFATE 2 MG/ML SYR 1ML IV PRN ×3 (07:45→20:34)
[2020-02-21] MEDS: ONDANSETRON HCL INJ 2MG/ML 2ML 2 MG/ML VIAL IV PRN ×2 (07:45→20:34)
--- NOTE | 2020-02-21 08:48 | NUR ---
REPORT GIVEN TO OTHER NURSE. PATIENT IS RESTING IN BED. NO ACUTE DISTRESS NOTED. CALL LIGHT WITHIN REACH. BED IN THE LOWEST POSITION.
--- NOTE | 2020-02-21 08:53 | NUR ---
BEDSIDE REPORT RECEIVED FROM RN FOR TRANSFER OF CARE. PT RESTING IN BED, AWAKE, ALERT, NG TUBE IN LEFT NARE TO LIWS. PT DENIES ANY PAIN OR OTHER COMPLAINTS AT THIS TIME. WILL CONTINUE TO MONITOR.
[2020-02-21] MEDS ORDERED: POTASSIUM CHLORIDE 20MEQ/100ML 200 ML IV ONE (09:00)
--- NOTE | 2020-02-21 09:01 | NUR ---
PAGED DR PETERSON REGARDING SURGICAL CONSULT.
--- NOTE | 2020-02-21 09:45 | Diagnostic Imaging Report ---
Abdomen 2 views INDICATION: ^small bowel obstruction ^[id number] ^0915 ^Y Comparison: CT dated 02/20/2020. Discussion: Upright view is negative for pneumoperitoneum. There are air-fluid levels identified in the right upper quadrant. Prominent small bowel loops are again identified in the right abdomen measuring up to 4 cm. Colon is decompressed. Enteric tube is noted with tip within the proximal gastric body and sidehole at the level of the gastroesophageal junction. Multiple overlying EKG leads are noted. Lung bases are clear. No suspicious calcification. Severe degenerative changes with left convex rotoscoliosis of the lumbar spine is noted. IMPRESSION: Persistent prominent small bowel loops in the right upper quadrant with air-fluid levels is concerning for obstruction. Negative for pneumoperitoneum. Colon is decompressed pain Enteric tube sidehole projects at the gastroesophageal junction, recommend advancement. Signed by: Rainer Bates MD on 02/21/2020 9:41 AM
[2020-02-21] MEDS: SODIUM CHLORIDE 0.9% 1000ML 1,000 ML IV SCH ×3 (09:53→20:34)
--- NOTE | 2020-02-21 10:31 | Progress Note ---
DATE: 02/21/2020 CHIEF COMPLAINT/HISTORY OF PRESENT ILLNESS: This is a 69-year-old white woman, whose primary treating diagnosis is sepsis from likely ileitis as well as small bowel obstruction. The patient states she does feel better today. The patient underwent a repeat 2-view plain film abdominal x-ray today, which revealed persistent prominent small bowel loops in the right upper quadrant with air-fluid levels concerning for obstruction. The patient's potassium today was is 3.1. The patient's serum bicarbonate is 19. The patient's BUN and creatinine 42 and 2.48 respectively. The patient's lactic acid at last night was 1.1, which has improved. Urinalysis performed yesterday revealed a cloudy yellow concentrated urine with many bacteria, but no white blood cells were appreciated. The patient had a urine toxicology performed on admission, which was positive for opiates. REVIEW OF SYSTEMS: As per HPI. PHYSICAL EXAMINATION: GENERAL: She is awake, alert, and oriented. She is very pleasant and cooperative on exam. VITAL SIGNS: Blood pressure is 108/60, pulse 82, respiratory rate 18, temperature is 98.3, and oxygen saturation 99% on room air. Height is 5 feet 5 inches, weight 150 pounds, BMI 25. INTEGUMENT: Skin is warm and dry. No pallor, jaundice, or diaphoresis. HEENT: Anicteric sclerae with moist mucous membranes. The patient has a nasogastric tube in place. NECK: Supple. CARDIOVASCULAR: Tachycardic rate, regular rhythm. LUNGS: No rales. No rhonchi or wheezes. ABDOMEN: Soft. It is distended. Hypoactive bowel sounds are appreciated. EXTREMITIES: No edema or deformity. NEUROLOGIC: Intact. DIAGNOSES: 1. Sepsis secondary to ileitis. 2. Small bowel obstruction. 3. Hypokalemia. 4. Acute renal insufficiency secondary to acute tubular necrosis. PLAN: 1. Continue to hold blood pressure medications. 2. Intravenous fluids. 3. Follow renal function and electrolytes. 4. Replete potassium with intravenous infusion. 5. Appreciate General Surgery's input. 6. We will continue daily abdominal x-rays to assess the patient's small bowel obstruction. 7. Continue intravenous antibiotics. I spent 30 minutes in the care of this patient. Sam E Orahood, MD MEO/TAVIA /[id number] JOCE
--- NOTE | 2020-02-21 20:30 | NUR ---
PATIENT RESTING IN BED IN STABLE CONDITION, NO SIGNS OF DISTRESS NOTED. IV FLUIDS ARE RUNNING AT ORDERED RATE AND PATIENT VOICES PAIN AT A LEVEL OF 7, WAS MEDICATED ORDERED. NG TUBE IS INTACT AND RUNNING AT LOW SUCTION, URINARY CATHETER IS INTACT WELL, PATENT AND FLOWING, CLEAR YELLOW URINE NOTED. BED IS IN LOW POSITION, BOTH SIDE RAILS ARE UP, CALL LIGHT IS WITHIN EASY REACH, WILL CONTINUE TO MONITOR.
[2020-02-22] VITALS (7 sets, daily range): BP systolic 102–137; BP diastolic 51–65
[2020-02-22] MEDS: ONDANSETRON HCL INJ 2MG/ML 2ML 2 MG/ML VIAL IV PRN ×2 (00:30→20:33)
[2020-02-22] MEDS: MORPHINE SULFATE 2 MG/ML SYR 1ML IV PRN ×4 (00:30→20:33)
[2020-02-22] MEDS: SODIUM CHLORIDE 0.9% 250ML IRRIG IR SCH ×7 (00:30→20:18)
[2020-02-22] MEDS: METRONIDAZOLE 500MG/NS 100ML 100 ML IV SCH ×4 (04:00→20:33)
[2020-02-22] MEDS: PIPERACILLIN/TAZO 2.25 GM 50 ML IV SCH ×3 (05:44→22:47)
[2020-02-22] MEDS: SODIUM CHLORIDE 0.9% 1000ML 1,000 ML IV SCH (05:44)
[2020-02-22 06:43] LABS: BASOPHILS % 0.9 % (0.0-1.0); EOSINOPHILS # (AUTO) 0.2 (0.0-0.4); EOSINOPHILS % 3.9 % (0.0-6.0); HEMATOCRIT 36.5 % (34.2-44.1); HEMOGLOBIN 11.5 g/dL (12.0-16.0); LYMPHOCYTES # (AUTO) 0.8 (1.0-3.2); LYMPHOCYTES % 18.2 % (18.0-39.1); MEAN CORPUSCULAR HEMOGLOBIN 28.8 pg (28-32); MEAN CORPUSCULAR HGB CONC 31.5 g/dL (31-35); MEAN CORPUSCULAR VOLUME 91.5 fL (81-99); MONOCYTES # (AUTO) 0.4 (0.2-0.8); MONOCYTES % 8.8 % (4.4-11.3); PLATELET COUNT 111 x10e3/uL (140-360); RED BLOOD COUNT 3.99 x10e6/uL (3.6-5.1); RED CELL DISTRIBUTION WIDTH 13.5 % (11.7-14.4)
[2020-02-22 07:10] LABS: ALBUMIN 3.4 g/dL (3.5-5.0); ALBUMIN/GLOBULIN RATIO 1.4 (0.8-2.0); ANION GAP 18.1 mmol/L (8-16); CALCIUM 7.7 mg/dL (8.4-10.2); CREATININE, SERUM 1.19 mg/dL (0.57-1.11); POTASSIUM 4.1 mmol/L (3.5-5.1)
--- NOTE | 2020-02-22 07:36 | NUR ---
pt's accucheck blood sugar [address] Barger and received orders for D50. will administer. Addendum: 02/22/20 at 0741 by Antonette Anderson RN correction: lab draw glucose was 56 this morning.
[2020-02-22] MEDS ORDERED: DEXTROSE 50% SYRINGE 50 ML IV STA (07:37)
--- NOTE | 2020-02-22 08:33 | Diagnostic Imaging Report ---
Abdomen 2 views INDICATION: ^SMALL BOWEL OBSTRUCTION ^[id number] ^0520 ^Y Comparison: 02/21/2020 and 02/20/2020. Discussion: Upright view is negative for pneumoperitoneum. There are similar mildly dilated right upper quadrant small bowel loops measuring up to 3.8 cm. Stomach is decompressed. Colon is decompressed. Stable enteric tube. Stable multiple overlying EKG leads. Negative for acute osseous abnormality. Stable severe as shaped scoliosis of the thoracolumbar spine with associated advanced multilevel degenerative changes. IMPRESSION: Similar appearance of mildly dilated small bowel loops in the right upper quadrant and mid abdomen. No evidence of gross pneumoperitoneum. Signed by: Rainer Bates MD on 02/22/2020 8:30 AM
[2020-02-22] MEDS ORDERED: DEXTROSE 5% 1,000 ML IV SCH (09:30)
--- NOTE | 2020-02-22 10:00 | NUR ---
pt's NG tube clamped per MD's order. pt tolerated well; drinking clear liquids at this time.
--- NOTE | 2020-02-22 10:06 | Progress Note ---
DATE: 02/22/2020 CHIEF COMPLAINT/HISTORY OF PRESENT ILLNESS: A 69-year-old white woman, whose primary treating diagnosis is sepsis secondary to ileitis and small bowel obstruction. The patient's small-bowel obstruction seems to be resolving. The patient is very adamant and the patient states she is no longer having abdominal pain. The patient has not had any bowel movements, but has had significant amount of flatus. The patient denied any fever or chills. White blood cell count today is 4300 with 68% segmented neutrophils, hemoglobin 11.5 g/dL. The patient's BUN and creatinine 36 and 1.19 respectively. The patient's serum bicarbonate is low at 14 and potassium 4.1. The patient's glucose was low at 156 mg/dL. The patient underwent a two view abdominal x-ray today that reveals similar appearance of mildly dilated small bowel loops in the right upper quadrant and mid abdomen. Furthermore, it did reveal a decompressed colon. REVIEW OF SYSTEMS: As per HPI. PHYSICAL EXAMINATION: GENERAL: She is awake, alert. She is oriented. She is in no distress. VITAL SIGNS: Blood pressure 120/60, pulse 80, respiratory rate 16, temperature 98.3, BMI 25, oxygen saturation is 99% on room air. INTEGUMENT: Skin is warm and dry. No pallor, jaundice, diaphoresis. HEENT: Anicteric sclerae. Moist mucous membranes. She has a nasogastric tube in place. NECK: Supple. CARDIOVASCULAR: Regular rate and rhythm. LUNGS: No rales, no rhonchi or wheezes. ABDOMEN: Soft. She has hypoactive bowel sounds. ABDOMEN: Nontender. EXTREMITIES: No edema or deformity. NEURO: Intact. DIAGNOSES: 1. Small-bowel obstruction, resolving. 2. Sepsis secondary to ileitis. 3. Hypertensive heart disease. 4. Chronic opiate use. 5. Chronic back pain secondary to lumbar disk disease. 6. Acute renal insufficiency secondary to acute tubular necrosis, resolving. 7. Metabolic acidosis, likely secondary to starvation ketosis. PLAN: 1. Discontinue intravenous normal saline. 2. Start intravenous 5% dextrose water with two ampules of bicarbonate to help correct the patient's hypoglycemia and metabolic acidosis. 3. We will clamp NG tube and start clear liquids. 4. Continue intravenous antibiotics. 5. Follow white blood cell count and renal function as well as electrolytes. I spent 30 minutes in the care of this patient. MD BASIL Gonzalez /[id number] JOCE
[2020-02-22] MEDS: SODIUM BICARBONATE 8.4% 100 ML in DEXTROSE 5% 1,000 ML IV SCH ×2 (12:27→18:48)
[2020-02-22] MEDS ORDERED: BISACODYL 10 MG SUPP PR ONE ×2 (18:00→18:30)
--- NOTE | 2020-02-22 19:34 | NUR ---
pt's NG tube removed per MD orders. pt tolerated well. tip intact.
[2020-02-23] VITALS (8 sets, daily range): BP systolic 126–145; BP diastolic 61–74
[2020-02-23] MEDS: ONDANSETRON HCL INJ 2MG/ML 2ML 2 MG/ML VIAL IV PRN ×4 (00:33→22:40)
[2020-02-23] MEDS: MORPHINE SULFATE 2 MG/ML SYR 1ML IV PRN ×4 (00:33→22:40)
[2020-02-23] MEDS: METRONIDAZOLE 500MG/NS 100ML 100 ML IV SCH ×4 (02:42→21:00)
[2020-02-23] MEDS: SODIUM BICARBONATE 8.4% 100 ML in DEXTROSE 5% 1,000 ML IV SCH ×3 (02:42→21:12)
[2020-02-23] MEDS: PIPERACILLIN/TAZO 2.25 GM 50 ML IV SCH ×3 (06:03→21:41)
[2020-02-23 07:12] LABS: BASOPHILS % 0.5 % (0.0-1.0); EOSINOPHILS # (AUTO) 0.2 (0.0-0.4); EOSINOPHILS % 4.5 % (0.0-6.0); HEMATOCRIT 32.9 % (34.2-44.1); HEMOGLOBIN 10.7 g/dL (12.0-16.0); LYMPHOCYTES % 23.6 % (18.0-39.1); MEAN CORPUSCULAR HEMOGLOBIN 29.2 pg (28-32); MEAN CORPUSCULAR HGB CONC 32.5 g/dL (31-35); MEAN CORPUSCULAR VOLUME 89.6 fL (81-99); MONOCYTES # (AUTO) 0.4 (0.2-0.8); MONOCYTES % 8.3 % (4.4-11.3); NEUTROPHILS # (AUTO) 2.7 (2.1-6.9); NEUTROPHILS % 62.9 % (38.7-80.0); PLATELET COUNT 117 x10e3/uL (140-360); RED BLOOD COUNT 3.67 x10e6/uL (3.6-5.1); RED CELL DISTRIBUTION WIDTH 13.4 % (11.7-14.4)
[2020-02-23 07:40] LABS: ALANINE AMINOTRANSFERASE 18 IU/L (0-55); ALBUMIN 3.2 g/dL (3.5-5.0); ALBUMIN/GLOBULIN RATIO 1.6 (0.8-2.0); ALKALINE PHOSPHATASE 61 IU/L (40-150); ANION GAP 11.9 mmol/L (8-16); BLOOD UREA NITROGEN 20 mg/dL (7-26); BUN/CREATININE RATIO 23 (6-25); CALCIUM 7.3 mg/dL (8.4-10.2); CARBON DIOXIDE 24 mmol/L (22-29); CHLORIDE 107 mmol/L (98-107); CREATININE, SERUM 0.87 mg/dL (0.57-1.11); EST GLOMERULAR FILTRATION RATE > 60 ML/MIN (60-); GLUCOSE 109 mg/dL (74-118); SODIUM 140 mmol/L (136-145)
[2020-02-23 07:44] LABS: POTASSIUM 2.9 mmol/L (3.5-5.1)
[2020-02-23] MEDS ORDERED: POTASSIUM CHLORIDE 20 MEQ TAB CR PO STA (08:23)
--- NOTE | 2020-02-23 08:42 | Diagnostic Imaging Report ---
Abdomen, 2 views. History: Small bowel obstruction. Comparison: 02/22/2020. Findings: Multiple dilated loops of small bowel are seen throughout the abdomen with multiple air-fluid levels and paucity of air in the colon. There are no air-fluid levels. There is no evidence of free air. There are no masses or abnormal calcifications. The osseous structures are intact. IMPRESSION: Persistent distal small bowel obstruction. Signed by: Chirag William on 02/23/2020 8:39 AM
[2020-02-23] MEDS ORDERED: POTASSIUM CHLORIDE 20 MEQ TAB CR PO SCH ×2 (10:00→12:00)
--- NOTE | 2020-02-23 10:40 | NUR ---
medina was removed per MD orders. pt tolerated well, 275 mL emptied from medina bag
--- NOTE | 2020-02-23 11:07 | Progress Note ---
DATE: 02/23/2020 CHIEF COMPLAINT/HISTORY OF PRESENT ILLNESS: This is a 69-year-old white woman, whose primary treating diagnosis is sepsis secondary to ileitis with small bowel obstruction. The patient's sepsis has resolved. The patient was also admitted with acute renal insufficiency that has also resolved. The patient states that today, she is having more right lumbar abdominal pain. She does complain of slight nausea, but no vomiting. The patient's blood work today revealed a white blood cell count of 4200 with 62% segmented neutrophils. Hemoglobin today is 10.7 g/dL. The patient's BUN and creatinine today is 20 and 0.87 respectively. Potassium is 2.9. The patient's serum bicarbonate is normal at 24 with anion gap of 11.9. The patient underwent a two-view abdominal x-ray this morning that revealed multiple dilated loops of small bowel throughout the abdomen with multiple air-fluid levels and paucity of air in the colon. The radiologist stated that these findings were consistent with persistent distal small-bowel obstruction. REVIEW OF SYSTEMS: As per HPI. PHYSICAL EXAMINATION: GENERAL: She is awake, she is alert, she is fully oriented. She does appear to be in some distress. She is very pleasant, cooperative. VITAL SIGNS: Height is 5 feet 5 inches, weight is 150 pounds, and BMI is 25, blood pressure is 140/68, pulse 66, respiratory rate 16, temperature 98.2, oxygen saturation 99% on room air. INTEGUMENT: Skin is warm and dry. No pallor, jaundice, or diaphoresis. HEENT: Clear, moist mucous membranes. NECK: Supple. CARDIOVASCULAR: Distant heart sounds. Regular rate and rhythm. LUNGS: No rales, no rhonchi or wheezes. ABDOMEN: Distended. She has high-pitched bowel sounds. She is tender in the right lumbar abdominal area. EXTREMITIES: No edema in legs. NEUROLOGIC: Intact. DIAGNOSES: 1. Hypokalemia, replete potassium. 2. Small-bowel obstruction. 3. Sepsis secondary to ileitis, resolved. 4. Acute renal insufficiency secondary to acute tubular necrosis, resolved. 5. Hypertensive heart disease. 6. Chronic opiate use. 7. Chronic back pain secondary to lumbar disk disease. 8. Metabolic acidosis secondary to starvation ketosis, resolved. PLAN: 1. Remove Richards catheter. 2. Continue intravenous fluids. 3. May consider making the patient n.p.o. status. 4. Continue intravenous antibiotics. 5. Follow electrolytes renal function. 6. Order CT abdomen and pelvis today without contrast. 7. Repeat two-view abdominal x-ray tomorrow morning. 8. We will discuss case with General surgery. I spent 30 minutes in the care of this patient. MD LUKE Gonzalez/TAVIA /[id number] MTDD
[2020-02-23] MEDS ORDERED: DIATRIZOATE MEGL/DIATRIZOA SOD 30 ML BTL PO ONE (13:25)
--- NOTE | 2020-02-23 15:46 | Diagnostic Imaging Report ---
CT of the abdomen and pelvis, without contrast, 02/23/2020. History: Small bowel obstruction. Comparison: 02/20/2020. Technique: Multidetector CT scanning of the abdomen and pelvis was performed from the level of the lung bases to the inferior pubic rami without intravenous contrast. Oral contrast was given. Coronal and sagittal multiplanar reformations were obtained. RADIATION DOSE: Total DLP: 325 mGy*cm Dose modulation, iterative reconstruction, and/or weight based adjustment of the mA/kV was utilized to reduce the radiation dose to as low as reasonably achievable. Discussion: Examination is limited without contrast. Lung bases: There is bibasilar atelectasis with trace bilateral pleural effusions and a calcified granuloma in the right lower lobe. Calcified fat necrosis is noted within bilateral breasts. Abdomen: The liver, gallbladder, biliary tree, spleen, pancreas, adrenal glands, and kidneys are unremarkable. The abdominal aorta is within normal limits. A moderate hiatal hernia is present. Congenital malrotation is again noted with small bowel on the right side of the abdomen and large bowel on the left. There is diffuse proximal small bowel dilatation but the distal ileum and colon are nondistended. Transition point is likely somewhere in the right lower quadrant. Minimal residual contrast is present within the colon from prior exam. There is no evidence of adenopathy or free air. There may be a small amount of fluid between distal small bowel loops. Pelvis: The bladder is unremarkable. The uterus and adnexa are not visualized. There is a small amount of free fluid posteriorly. Bones and soft tissues: Degenerative changes are present throughout the lumbar spine without evidence of lytic or sclerotic lesion. IMPRESSION: 1. Congenital malrotation with persistent distal small bowel obstruction. No evidence of perforation. 2. Status post hysterectomy. Signed by: Chirag William on 02/23/2020 3:43 PM
[2020-02-23 16:31] LABS: ANION GAP 15.1 mmol/L (8-16); BLOOD UREA NITROGEN 14 mg/dL (7-26); BUN/CREATININE RATIO 16 (6-25); CALCIUM 8.2 mg/dL (8.4-10.2); CARBON DIOXIDE 26 mmol/L (22-29); CHLORIDE 103 mmol/L (98-107); CREATININE, SERUM 0.89 mg/dL (0.57-1.11); EST GLOMERULAR FILTRATION RATE > 60 ML/MIN (60-); GLUCOSE 94 mg/dL (74-118); POTASSIUM 4.1 mmol/L (3.5-5.1); SODIUM 140 mmol/L (136-145)
[2020-02-23] MEDS: PROMETHAZINE 12.5MG/ NACL 0.9% 12.5 MG/50 ML BAG IV PRN (17:39)
--- NOTE | 2020-02-23 17:40 | NUR ---
Dr. Roopa Mckinley rounded, informed patient that her abdomen is more distended than previous day. Gave orders to make patient NPO and told the patient that if her distention does not improve by the am then she will be going to surgery
--- NOTE | 2020-02-23 19:30 | NUR ---
pt has poor venous access. got order from Dr. Barger to have picc line placed.
--- NOTE | 2020-02-23 19:35 | NUR ---
Pt refused to have new IV started for pain medication and antibiotics. Pt states she wants to wait until the PICC line is placed. Orders placed for PICC, consent signed, and radiology called. Will continue to monitor pt.
--- NOTE | 2020-02-23 22:31 | NUR ---
Pt has complaints of pain and nausea. Still no IV assess. Pt has now agreed to have IV started until PICC placed. New #22 started in left hand x 1 stick without any difficulties. Blood returned and IV flushed without any resistance. Will administer medications as ordered.
[2020-02-24] VITALS (8 sets, daily range): BP systolic 128–152; BP diastolic 56–80
--- NOTE | 2020-02-24 01:02 | Diagnostic Imaging Report ---
EXAMINATION: CHEST XRAY LINE PLACEMENT INDICATION: ^verify PICC placement ^[id number] ^0040 COMPARISON: 02/20/2020 FINDINGS: AP view TUBES and LINES: Right PICC in place with tip projecting over inferior SVC. LUNGS: Lungs are well inflated. Mild central vascular congestion. PLEURA: No pneumothorax. No significant pleural effusion. HEART AND MEDIASTINUM: The cardiomediastinal silhouette is unremarkable. BONES AND SOFT TISSUES: No acute osseous lesion. Soft tissues are unremarkable. UPPER ABDOMEN: No free air under the diaphragm. IMPRESSION: Right PICC in place with tip projecting over inferior SVC. No visible pneumothorax. Mild central vascular congestion. Signed by: Dr. Avtar Moctezuma MD on 02/24/2020 12:59 AM
[2020-02-24] MEDS: PROMETHAZINE 12.5MG/ NACL 0.9% 12.5 MG/50 ML BAG IV PRN ×2 (01:43→08:47)
[2020-02-24] MEDS: METRONIDAZOLE 500MG/NS 100ML 100 ML IV SCH ×3 (02:56→15:24)
[2020-02-24] MEDS: SODIUM BICARBONATE 8.4% 100 ML in DEXTROSE 5% 1,000 ML IV SCH ×2 (04:51→14:45)
[2020-02-24] MEDS: PIPERACILLIN/TAZO 2.25 GM 50 ML IV SCH ×3 (04:51→21:04)
[2020-02-24] MEDS: ONDANSETRON HCL INJ 2MG/ML 2ML 2 MG/ML VIAL IV PRN ×2 (05:41→13:18)
[2020-02-24] MEDS: MORPHINE SULFATE 2 MG/ML SYR 1ML IV PRN ×3 (05:41→13:19)
[2020-02-24 06:23] LABS: BASOPHILS % 0.5 % (0.0-1.0); EOSINOPHILS # (AUTO) 0.1 (0.0-0.4); EOSINOPHILS % 2.4 % (0.0-6.0); HEMATOCRIT 39.6 % (34.2-44.1); HEMOGLOBIN 12.7 g/dL (12.0-16.0); LYMPHOCYTES # (AUTO) 1.5 (1.0-3.2); LYMPHOCYTES % 26.6 % (18.0-39.1); MEAN CORPUSCULAR HEMOGLOBIN 28.2 pg (28-32); MEAN CORPUSCULAR HGB CONC 32.1 g/dL (31-35); MONOCYTES # (AUTO) 0.5 (0.2-0.8); MONOCYTES % 9.3 % (4.4-11.3); NEUTROPHILS # (AUTO) 3.3 (2.1-6.9); NEUTROPHILS % 60.7 % (38.7-80.0); PLATELET COUNT 149 x10e3/uL (140-360)
[2020-02-24 06:48] LABS: ALBUMIN 3.7 g/dL (3.5-5.0); ALBUMIN/GLOBULIN RATIO 1.5 (0.8-2.0); ANION GAP 15.4 mmol/L (8-16); CALCIUM 8.2 mg/dL (8.4-10.2); CREATININE, SERUM 0.94 mg/dL (0.57-1.11); POTASSIUM 4.4 mmol/L (3.5-5.1)
--- NOTE | 2020-02-24 08:49 | Diagnostic Imaging Report ---
Abdomen 2 view INDICATION: ^small bowel obstruction ^[id number] ^0810 ^Y Comparison: X-ray and CT dated September 23. Discussion: There are persistent dilated small bowel loops with air-fluid levels in the right upper quadrant consistent with history of malrotation. Upright view is negative for pneumoperitoneum. Contrast is identified within the colon. Soft tissues are unremarkable. Negative for acute osseous abnormality. IMPRESSION: Stable dilated right upper quadrant small bowel loops with congenital malrotation. Negative for pneumoperitoneum. Contrast is identified within the decompressed descending colon. Signed by: Rainer Bates MD on 02/24/2020 8:46 AM
--- NOTE | 2020-02-24 08:51 | Progress Note ---
DATE: 02/24/2020 CHIEF COMPLAINT/HISTORY OF PRESENT ILLNESS: This is a 69-year-old white woman whose primary treating diagnosis is small-bowel obstruction. She was also diagnosed with sepsis secondary to ileitis on admission. The patient states that she is experiencing more abdominal discomfort today. The patient is complains of nausea. Denies any vomiting. The patient states that her nausea worsens when she drinks any liquids. Also, she complains of loose liquidy stools every time she urinates. Blood work performed today revealed a white blood cell count of 5400 with 60% segmented neutrophils. Hemoglobin is 12.7 g/dL. BUN and creatinine today is 13 and 0.94 respectively. Potassium is 4.4. The patient underwent CT abdomen and pelvis without contrast yesterday February 23, 2020, which revealed findings consistent with persistent distal small-bowel obstruction. No evidence of perforation was appreciated. REVIEW OF SYSTEMS: As per HPI. PHYSICAL EXAMINATION: GENERAL: She is awake. She is alert. She is oriented. She is in no distress. VITAL SIGNS: Height 5 feet 5 inches, weight 150 pounds, BMI 25. Blood pressure is 134/74, pulse is 82, respiratory rate 18, temperature 99.3, oxygen 95% on room air. SKIN: Warm and dry. No pallor, jaundice or diaphoresis. HEENT: Anterior sclerae with moist mucous membranes. NECK: Supple. CARDIOVASCULAR: Regular rate and rhythm and S4 gallop. LUNGS: No rales, no rhonchi, no wheezes. ABDOMEN: Soft, obviously distended. She has high-pitched bowel sounds. EXTREMITIES: No edema or deformity. NEUROLOGIC: Intact. DIAGNOSES: 1. Small bowel obstruction (persistent). 2. Paradoxical diarrhea secondary to small bowel obstruction. 3. Acute renal insufficiency, resolved. 4. Hypertensive heart disease. 5. Chronic opiate use. 6. Chronic back pain secondary to lumbar disk disease. PLAN: 1. Discuss case with General Surgery. 2. The patient will likely need to go to the operating room due to her persistent small bowel obstruction. 3. Continue intravenous fluids. 4. Continue intravenous antibiotics. 5. We will make the patient n.p.o. status. I spent 25 minutes in the care of this patient. MD LUKE Gonzalez/TAVIA /[id number] MTDD
[2020-02-24] MEDS ORDERED: GLYCOPYRROLATE INJ 0.2 MG/ML VIAL ONE (14:13)
[2020-02-24] MEDS ORDERED: PROPOFOL IV EMULSION 10 MG/ML 20 ML VIAL ONE (14:13)
[2020-02-24] MEDS ORDERED: PHENYLEPHRINE HCL 1% 10 MG/ML VIAL ONE (14:13)
[2020-02-24] MEDS ORDERED: ROCURONIUM BROMIDE 10 MG/ML 5ML VIAL IV ONE (14:13)
[2020-02-24] MEDS ORDERED: SUCCINYLCHOLINE CHLORIDE 20 MG/ML 10ML VIAL ONE (14:13)
[2020-02-24] MEDS ORDERED: NEOSTIGMINE 1 MG/ML 10ML VIAL ONE (14:13)
[2020-02-24] MEDS ORDERED: LIDOCAINE HCL 2% LOCAL INJ 5 ML SDV VIAL INJ ONE (14:13)
[2020-02-24] MEDS ORDERED: SEVOFLURANE INHAL SOLN 250 ML PEN BTL ONE (14:13)
[2020-02-24] MEDS ORDERED: ONDANSETRON HCL INJ 2MG/ML 2ML 2 MG/ML VIAL ONE ×2 (14:13→18:55)
[2020-02-24] MEDS ORDERED: DEXAMETHASONE SOD PHOS INJ 4 MG/ML VIAL ONE (14:13)
[2020-02-24] MEDS ORDERED: FENTANYL CITRATE/PF 100MCG/2 ML INJ ONE (14:53)
[2020-02-24] MEDS ORDERED: MIDAZOLAM HCL 2 MG/2 ML VIAL ONE (14:53)
[2020-02-24] MEDS ORDERED: ACETAMINOPHEN 1000 MG/100 ML IV PRN (18:15)
[2020-02-24] MEDS ORDERED: NALOXONE HCL INJ 0.4 MG/ML AMP IV PRN (18:15)
[2020-02-24] MEDS: HYDROMORPHONE 0.2MG/ML-SOD CHL 30ML PCA SYRINGE IV PRN (18:30)
[2020-02-24] MEDS ORDERED: HYDROMORPHONE 1MG/1ML INJ ONE (18:47)
--- NOTE | 2020-02-24 19:09 | Operative Report ---
DATE OF PROCEDURE: 02/24/2020 SURGEON: Kenneth Mckinley MD PREOPERATIVE DIAGNOSIS: Small bowel obstruction. POSTOPERATIVE DIAGNOSES: Small bowel obstruction, secondary to internal hernia from congenital intestinal malrotation. OPERATIONS PERFORMED: Exploratory laparotomy, lysis of adhesions and release of small-bowel obstruction, and takedown a [place] bands. WHIPPED TOPPING SUPERVISOR: Luis Daniel Mckinley MD ANESTHESIA: General endotracheal. COMPLICATIONS: None. ESTIMATED BLOOD LOSS: 100 mL. DESCRIPTION OF PROCEDURE: With the patient lying in bed in the supine position under good general endotracheal anesthesia, the abdomen was prepped with Betadine solution and draped in the usual manner. A midline incision was made, it was carried down through the subcutaneous tissue down to the midline fascia. The peritoneum was opened and the abdomen was entered. Upon entering the abdominal cavity, immediately as expected the malrotation was encountered. The right colon and the cecum were actually on the left side of the colon; there was some loops of small bowel in the pelvis, that were decompressed. There was a big ball of bowel in the right upper quadrant consistent with the patient's malrotation and [place] bands. At this point, we were able to follow the small bowel from the terminal ileum forward and we actually found the point of obstruction, there was a loop of bowel that had a constriction band and there was an actual hole in the mesentery of the colon, where loop of bowel was actually coming through and that was the point of obstruction. We decided that we needed to go ahead and mobilize all of the malrotation, the right colon was then mobilized off the lateral gutter and the sac having encompassed all of the mild rotated small bowel in the right upper quadrant was then opened and the bowel was then followed distally, and this leads us to the point of obstruction. At this point, we had good access in all directions and the tunnel that was created in the mesentery was then slowly and carefully opened, and the adhesion that created the obstruction was totally and completely released; this mobilized the cecum and the right colon and we then slowly and carefully mobilized all of the bowel over the [place] bands were taken down. The duodenum was then identified and once this was done, then go ahead and run the bowel from the duodenum all the way down to the terminal ileum. There was no other adhesive points. The area where the bowel had been constricted, we decided to go ahead and just plicate it with some 3-0 silks in the serosa to make sure that there was no issues with any kind of perforation later, all of the bowel did appear to be viable at this point. So, once this was done, the colon was then rotated back to the right upper quadrant. All of the small bowel was then brought medially and freely, and reduced in an pancake professional fashion back to the intraabdominal cavity. The whole abdomen was then copiously irrigated. Perfect hemostasis was ascertained. All of the excess fluid was aspirated and the abdomen was then closed in layers. The peritoneum was closed with a running suture of #1 Vicryl. The midline fascia was closed with a running suture of #1 Vicryl. The subcutaneous tissue was approximated with 2-0 chromic and the skin was closed with clips. A dressing was applied. The sponge, lap, and needle counts were correct. The patient tolerated the procedure well and returned to the recovery room in stable condition. MD LAKE Alvarenga/TAVIA /[id number]
--- NOTE | 2020-02-24 19:40 | NUR ---
PATIENT RECIEVED FROM PACU S/P EXP LAP W/BOWEL RESECTION. PT HAS NG TUBE TO R NARE AND ORDERED TO HAVE LIWS WITH Q4H NS IRRIGATION. PT ALSO HAS INVESTIGATIVE SHOPPER DILAUDID PUMP AND VERIFIED SETTINGS WITH PACU NURSE. PT CURRENTLY VERY SLEEPY BUT AWAKENS TO VERBAL STIMULI AND HAS NO C/O PAIN AT THIS TIME. PT IS RESTING COMFORTABLY, SO DRAINING TO BEDSIDE, RESP EVEN AND UNLABORED AND ON TELE MONITOR. WILL CONT TO MONITOR.
[2020-02-24] MEDS: SODIUM CHLORIDE 0.9% 250ML IRRIG IR SCH (20:21)
[2020-02-24] MEDS: PANTOPRAZOLE 40 MG 10ML VIAL IV SCH (21:03)
[2020-02-24] MEDS: DEXTROSE 5%/LACTATED RINGERS 1,000 ML IV SCH (21:03)
[2020-02-25] VITALS (7 sets, daily range): BP systolic 120–140; BP diastolic 66–90
[2020-02-25] MEDS: SODIUM CHLORIDE 0.9% 250ML IRRIG IR SCH ×6 (01:24→20:12)
[2020-02-25] MEDS: DEXTROSE 5%/LACTATED RINGERS 1,000 ML IV SCH ×3 (05:09→19:12)
[2020-02-25] MEDS: PIPERACILLIN/TAZO 2.25 GM 50 ML IV SCH ×3 (05:09→21:05)
[2020-02-25 05:51] LABS: BASOPHILS % 0.2 % (0.0-1.0); HEMATOCRIT 35.5 % (34.2-44.1); HEMOGLOBIN 11.7 g/dL (12.0-16.0); LYMPHOCYTES # (AUTO) 0.6 (1.0-3.2); LYMPHOCYTES % 6.5 % (18.0-39.1); MEAN CORPUSCULAR HEMOGLOBIN 30.2 pg (28-32); MEAN CORPUSCULAR VOLUME 91.7 fL (81-99); MONOCYTES # (AUTO) 0.7 (0.2-0.8); MONOCYTES % 7.7 % (4.4-11.3); NEUTROPHILS # (AUTO) 7.3 (2.1-6.9); NEUTROPHILS % 85.4 % (38.7-80.0); PLATELET COUNT 122 x10e3/uL (140-360); RED BLOOD COUNT 3.87 x10e6/uL (3.6-5.1); RED CELL DISTRIBUTION WIDTH 13.4 % (11.7-14.4)
[2020-02-25 06:27] LABS: ALANINE AMINOTRANSFERASE 33 IU/L (0-55); ALBUMIN/GLOBULIN RATIO 1.4 (0.8-2.0); ALKALINE PHOSPHATASE 58 IU/L (40-150); ANION GAP 12.2 mmol/L (8-16); BLOOD UREA NITROGEN 11 mg/dL (7-26); BUN/CREATININE RATIO 12 (6-25); CALCIUM 7.4 mg/dL (8.4-10.2); CARBON DIOXIDE 27 mmol/L (22-29); CHLORIDE 103 mmol/L (98-107); EST GLOMERULAR FILTRATION RATE > 60 ML/MIN (60-); GLUCOSE 183 mg/dL (74-118); POTASSIUM 4.2 mmol/L (3.5-5.1); SODIUM 138 mmol/L (136-145)
--- NOTE | 2020-02-25 14:29 | NUR ---
Nutrition Intervention Note RD Recommendation for Physician: -Recommend advancing to GI soft diet when medically appropriate -If diet is unable to be advanced, consider alternative means of nutrition Plan of Care: RD following, monitoring for tolerance and adequacy Nutrition reason for involvement: Length of stay and NPO/Clear liquid diet > [address] Assessment (02/25/20) Chart reviewed. Labs and meds reviewed. Pt is a 69 year old female admitted with abdominal pain, renal failure, and dehydration. Pt was found to have a small bowel obstruction per chart and had an exploratory laparotomy and lysis of adhesions yesterday. Pt has been on a NPO/clear liquid diet for 5 days. Attempted to speak to pt, but pt declined nutrition assessment be completed at this time. There are no reports of a decreased appetite or recent unintentional weight loss prior to admission per chart. Recommend advancing diet when medically appropriate. Will continue to monitor. Principal Problems/Diagnoses: abdominal pain, acute renal failure, dehydration PMH: Hypertensive heart disease, Tobacco abuse, Chronic bronchitis, Urinary incontinence. GI: tender/distended abdomen, last recorded BM 02/22 Skin: no pressure ulcers Labs: (02/24) Na 138, K 4.2, BUN 11, Cr 0.90, Glu 183, Ca 7.4 Meds: antibiotic, protonix, zofran Ht: 65 in Wt: 150 lb BMI: 25.0 kg/m2 IBW:125 lb Malnutrition Evaluation (02/25/20) The patient does not meet criteria for a specified degree of malnutrition at this time. Will re-evaluate at follow-up as appropriate. Energy intake: <50% of estimated energy requirements for 5 days Weight loss: No weight loss reported per chart Fat loss: unable to evaluate (pt refused nutrition assessment) Muscle loss: unable to evaluate (pt refused nutrition assessment) Supporting Evidence: Fluid accumulation: no edema per MD note Functional Status: unable to evaluate Nutrition Prescription (Diet Order): NPO Estimated Nutritional Needs: 6859-2461 calories/day (25-30 kcal/kg CBW) 68-102g protein/day (1.0-1.5 g pro/kg CBW) Diet Adequacy: Not meeting calorie needs, Not meeting protein needs Tolerance: N/A Diet Education Needs Assessment: Diet education not indicated, patient on temporary/transition diet. Nutrition Care Level: high Nutrition Diagnosis: Inadequate energy intake related to decreased ability to consume sufficient energy as evidenced by insufficient energy intake from diet compared to needs Goal: Patient will meet 75-100% of estimated needs by follow up Progress: N/A Interventions: -fiber- modified diet Monitoring/Evaluation: -Total energy intake, Total protein intake, , Modified diet, Weight change Signed: Taniya Medrano RD, LD
[2020-02-25] MEDS: HYDROMORPHONE 0.2MG/ML-SOD CHL 30ML PCA SYRINGE IV PRN (15:33)
[2020-02-25] MEDS: PANTOPRAZOLE 40 MG 10ML VIAL IV SCH (18:48)
[2020-02-26] VITALS (10 sets, daily range): BP systolic 104–173; BP diastolic 73–92
[2020-02-26] MEDS: SODIUM CHLORIDE 0.9% 250ML IRRIG IR SCH ×6 (00:42→20:57)
[2020-02-26] MEDS: DEXTROSE 5%/LACTATED RINGERS 1,000 ML IV SCH ×3 (04:39→19:24)
--- NOTE | 2020-02-26 05:27 | NUR ---
CALLED DR LOPEZ OFFICE TO NOTIFY OF PT HIGH BP DR Cheyanne SAMAYOA SHELLFISH DREDGE OPERATOR AND ORDERED HYDRALAZINE IV FOR PT. ADMINISTERED AND BP LOWERED PER CHARTED INTERACTIONS, WILL CONT TO MONITOR.
[2020-02-26] MEDS ORDERED: HYDRALAZINE HCL 20 MG/ML VIAL ONE (05:36)
[2020-02-26] MEDS: HYDRALAZINE HCL 20 MG/ML VIAL IV PRN (05:38)
[2020-02-26] MEDS ORDERED: ACETAMINOPHEN 1000 MG/100 ML IV PRN (05:45)
[2020-02-26] MEDS: PIPERACILLIN/TAZO 2.25 GM 50 ML IV SCH ×3 (06:04→21:01)
[2020-02-26] MEDS: HYDROMORPHONE 0.2MG/ML-SOD CHL 30ML PCA SYRINGE IV PRN ×2 (06:05→20:11)
[2020-02-26 06:07] LABS: BASOPHILS % 0.3 % (0.0-1.0); EOSINOPHILS # (AUTO) 0.2 (0.0-0.4); EOSINOPHILS % 2.1 % (0.0-6.0); HEMATOCRIT 36.1 % (34.2-44.1); HEMOGLOBIN 11.1 g/dL (12.0-16.0); LYMPHOCYTES # (AUTO) 1.2 (1.0-3.2); LYMPHOCYTES % 15.8 % (18.0-39.1); MEAN CORPUSCULAR HEMOGLOBIN 27.8 pg (28-32); MEAN CORPUSCULAR HGB CONC 30.7 g/dL (31-35); MEAN CORPUSCULAR VOLUME 90.3 fL (81-99); MONOCYTES # (AUTO) 0.6 (0.2-0.8); NEUTROPHILS # (AUTO) 5.7 (2.1-6.9); NEUTROPHILS % 73.4 % (38.7-80.0); PLATELET COUNT 130 x10e3/uL (140-360); RED CELL DISTRIBUTION WIDTH 13.4 % (11.7-14.4)
[2020-02-26 06:24] LABS: ALANINE AMINOTRANSFERASE 29 IU/L (0-55); ALBUMIN 2.9 g/dL (3.5-5.0); ALBUMIN/GLOBULIN RATIO 1.3 (0.8-2.0); ALKALINE PHOSPHATASE 51 IU/L (40-150); ANION GAP 10.8 mmol/L (8-16); BLOOD UREA NITROGEN 7 mg/dL (7-26); BUN/CREATININE RATIO 9 (6-25); CALCIUM 7.5 mg/dL (8.4-10.2); CARBON DIOXIDE 29 mmol/L (22-29); CHLORIDE 103 mmol/L (98-107); CREATININE, SERUM 0.81 mg/dL (0.57-1.11); EST GLOMERULAR FILTRATION RATE > 60 ML/MIN (60-); GLUCOSE 96 mg/dL (74-118); POTASSIUM 3.8 mmol/L (3.5-5.1); SODIUM 139 mmol/L (136-145)
[2020-02-26] MEDS: PANTOPRAZOLE 40 MG 10ML VIAL IV SCH (17:46)
[2020-02-27] VITALS (10 sets, daily range): BP systolic 129–165; BP diastolic 69–89
[2020-02-27] MEDS: SODIUM CHLORIDE 0.9% 250ML IRRIG IR SCH ×6 (00:47→20:51)
[2020-02-27] MEDS: DEXTROSE 5%/LACTATED RINGERS 1,000 ML IV SCH ×2 (04:50→18:10)
[2020-02-27] MEDS: HYDRALAZINE HCL 20 MG/ML VIAL IV PRN ×2 (05:04→18:10)
[2020-02-27] MEDS: PIPERACILLIN/TAZO 2.25 GM 50 ML IV SCH ×3 (05:04→21:27)
[2020-02-27 05:40] LABS: BASOPHILS % 0.3 % (0.0-1.0); EOSINOPHILS # (AUTO) 0.2 (0.0-0.4); EOSINOPHILS % 3.3 % (0.0-6.0); HEMATOCRIT 34.3 % (34.2-44.1); HEMOGLOBIN 10.5 g/dL (12.0-16.0); LYMPHOCYTES % 15.8 % (18.0-39.1); MEAN CORPUSCULAR HEMOGLOBIN 27.5 pg (28-32); MEAN CORPUSCULAR HGB CONC 30.6 g/dL (31-35); MEAN CORPUSCULAR VOLUME 89.8 fL (81-99); MONOCYTES # (AUTO) 0.5 (0.2-0.8); MONOCYTES % 8.7 % (4.4-11.3); NEUTROPHILS # (AUTO) 4.4 (2.1-6.9); NEUTROPHILS % 71.4 % (38.7-80.0); PLATELET COUNT 130 x10e3/uL (140-360); RED BLOOD COUNT 3.82 x10e6/uL (3.6-5.1); RED CELL DISTRIBUTION WIDTH 13.2 % (11.7-14.4)
[2020-02-27 05:52] LABS: ANION GAP 13.6 mmol/L (8-16); BLOOD UREA NITROGEN 5 mg/dL (7-26); BUN/CREATININE RATIO 7 (6-25); CALCIUM 7.6 mg/dL (8.4-10.2); CARBON DIOXIDE 26 mmol/L (22-29); CHLORIDE 102 mmol/L (98-107); CREATININE, SERUM 0.75 mg/dL (0.57-1.11); EST GLOMERULAR FILTRATION RATE > 60 ML/MIN (60-); GLUCOSE 83 mg/dL (74-118); POTASSIUM 3.6 mmol/L (3.5-5.1); SODIUM 138 mmol/L (136-145)
--- NOTE | 2020-02-27 06:40 | NUR ---
PER DR GUTIERREZ D/C PT [employer] PUMP. ED PT OF VOID TIME AND TO CALL FOR PAIN MEDS Q3H PRN. ED ONCOMING NURSE OF PT DUE TO VOID.
[2020-02-27] MEDS: HYDROMORPHONE 1MG/1ML INJ IV PRN ×5 (08:18→21:10)
--- NOTE | 2020-02-27 12:14 | Progress Note ---
DATE: 02/27/2020 CHIEF COMPLAINT/HISTORY OF PRESENT ILLNESS: This is a 69-year-old white woman whose primary treating diagnosis is persistent small bowel obstruction. On Saturday, February 29, 2020, the patient was taken to the operating room, and she underwent exploratory laparotomy with lysis of adhesions and release of small bowel obstruction. The general surgeon stated that the patient had the small bowel obstruction secondary to internal hernia from a congenital intestinal malrotation. The patient tolerated the surgery well. Today's white blood cell count 6100 with 71% segmenters. The patient's hemoglobin is 10.5 g/dL. The patient's potassium is 3.6. The patient's BUN and creatinine of 5 and 0.75, respectively. The patient denies any flatus or belching. She still has a nasogastric tube in place. The patient also denies any bowel movements. REVIEW OF SYSTEMS: As per HPI. PHYSICAL EXAMINATION: GENERAL: She is awake. She is alert. She is fully oriented. She is in no distress, very pleasant, and cooperative on exam. VITAL SIGNS: Blood pressure is 144/80, pulse is 100, respiratory rate is 24, oxygen saturation 97% on room air, and temperature 99.3. Height 5 feet 5 inches, weight 150 pounds, BMI 25. INTEGUMENT: Skin is warm and dry. No pallor, jaundice, or diaphoresis. HEENT: Anterior sclerae. Moist mucous membranes. The patient has a nasogastric tube in place. NECK: Supple. CARDIOVASCULAR: Tachycardic rate, regular rhythm. The patient has an S4 gallop. LUNGS: No rales, no rhonchi, no wheezes. ABDOMEN: Distended. No bowel sounds auscultated. The exploratory laparotomy incision is currently dressed. EXTREMITIES: No edema or deformity. NEUROLOGIC: Intact. DIAGNOSES: 1. Status post exploratory laparotomy with lysis of adhesions and release of small bowel obstruction. 2. Persistent small bowel obstruction, resolved. 3. Hypertensive heart disease. 4. Acute renal insufficiency, resolved. 5. Tobacco abuse. 6. Chronic bronchitis. PLAN: 1. Decrease intravenous fluids from 125 to 75 mL an hour because of the patient's hypertensive heart disease. 2. Keep nasogastric tube in place. 3. We will order two-view abdominal x-ray tomorrow morning. 4. Continue intravenous antibiotics. 5. We will ask nursing to keep strict documentation of intake and output fluids. 6. Mobilize physical therapy. 7. Encourage incentive spirometer usage to prevent atelectasis. I spent 35 minutes in the care of this patient. MD LUKE Gonzalez/TAVIA /[id number] JOCE
--- NOTE | 2020-02-27 13:23 | NUR ---
Discontinuing PT services since patient is Mod I in functional mobility.Thank you Addendum: 02/27/20 at 1324 by Balwinder ace PT Amended: Links added.
[2020-02-27] MEDS: METOCLOPRAMIDE HCL 10 MG/2ML VIAL IV SCH ×2 (15:08→18:10)
--- NOTE | 2020-02-27 16:44 | NUR ---
Received patient from [facility] via bed. AAOx3 to time, person, place. Respirations even and unlabored. NG tube in place draining green drainage. Attached to continuous suction as ordered. Instructed to use call light for assistance. Voiced understanding. Will continue to monitor. Addendum: 02/27/20 at 1902 by AZUL CROCKETT RN Right iverson NG tube
--- NOTE | 2020-02-27 16:45 | NUR ---
Handoff report to Nurse ROSEMARIE Schroeder patient on NGT to [facility] NGT to be clamped for 6 hours and to suction for 4hours, verbalized understanding.
[2020-02-27] MEDS: PANTOPRAZOLE 40 MG 10ML VIAL IV SCH (18:10)
--- NOTE | 2020-02-27 18:53 | NUR ---
WALKING ROUNDS PERFORMED, RECEIVED PT LAYING SEMI FOWLERS IN BED, AAOX3, RR EVEN AND NON-LABORED, ON ROOM AIR. NO S/SX OF DISTRESS NOTED. NGT TO (R) NARE CONNECTED TO SUCTION. WAS INFORMED IN CHANGE OF SHIFT THAT NGT TO BE CLAMPED FROM SUCTION AT 2100. DRESSING TO ANTERIOR ABD NOTED TO BE CDI WITH ABDOMINAL BINDER IN PLACE. LEFT PT LAYING SEMI FOWLERS IN BED,BED IN LOW LOCKED POSITION, SIDE RAILS UPX2, CALL LIGHT AND PHONE WITHIN REACH.
--- NOTE | 2020-02-27 21:10 | NUR ---
NGT CLAMPED A THIS TIME. WILL CONTINUE TO MONITOR PT FOR S/SX OF N/V.
[2020-02-28] VITALS (8 sets, daily range): BP systolic 141–173; BP diastolic 75–96
[2020-02-28] MEDS: METOCLOPRAMIDE HCL 10 MG/2ML VIAL IV SCH ×5 (00:20→23:50)
[2020-02-28] MEDS: HYDROMORPHONE 1MG/1ML INJ IV PRN ×7 (00:34→22:46)
[2020-02-28] MEDS: DEXTROSE 5%/LACTATED RINGERS 1,000 ML IV SCH ×2 (02:30→16:59)
[2020-02-28] MEDS: SODIUM CHLORIDE 0.9% 250ML IRRIG IR SCH ×5 (03:10→18:00)
--- NOTE | 2020-02-28 03:10 | NUR ---
NGT FLUSHED AND CONNECTED TO SUCTION.
[2020-02-28 05:23] LABS: BASOPHILS % 0.1 % (0.0-1.0); EOSINOPHILS # (AUTO) 0.1 (0.0-0.4); EOSINOPHILS % 1.6 % (0.0-6.0); HEMATOCRIT 36.4 % (34.2-44.1); HEMOGLOBIN 11.4 g/dL (12.0-16.0); LYMPHOCYTES # (AUTO) 1.2 (1.0-3.2); LYMPHOCYTES % 16.8 % (18.0-39.1); MEAN CORPUSCULAR HEMOGLOBIN 27.8 pg (28-32); MEAN CORPUSCULAR HGB CONC 31.3 g/dL (31-35); MEAN CORPUSCULAR VOLUME 88.8 fL (81-99); MONOCYTES # (AUTO) 0.6 (0.2-0.8); MONOCYTES % 8.7 % (4.4-11.3); NEUTROPHILS # (AUTO) 5.1 (2.1-6.9); NEUTROPHILS % 72.4 % (38.7-80.0); PLATELET COUNT 200 x10e3/uL (140-360); RED CELL DISTRIBUTION WIDTH 13.5 % (11.7-14.4)
[2020-02-28 05:42] LABS: ALANINE AMINOTRANSFERASE 24 IU/L (0-55); ALBUMIN 3.2 g/dL (3.5-5.0); ALBUMIN/GLOBULIN RATIO 1.2 (0.8-2.0); ALKALINE PHOSPHATASE 60 IU/L (40-150); ANION GAP 16.6 mmol/L (8-16); BLOOD UREA NITROGEN 6 mg/dL (7-26); BUN/CREATININE RATIO 8 (6-25); CALCIUM 7.9 mg/dL (8.4-10.2); CARBON DIOXIDE 24 mmol/L (22-29); CHLORIDE 102 mmol/L (98-107); CREATININE, SERUM 0.77 mg/dL (0.57-1.11); EST GLOMERULAR FILTRATION RATE > 60 ML/MIN (60-); GLUCOSE 97 mg/dL (74-118); POTASSIUM 3.6 mmol/L (3.5-5.1); SODIUM 139 mmol/L (136-145)
[2020-02-28] MEDS: PIPERACILLIN/TAZO 2.25 GM 50 ML IV SCH ×3 (06:01→21:34)
--- NOTE | 2020-02-28 07:17 | NUR ---
NGT CLAMPED A THIS TIME.
[2020-02-28] MEDS: ONDANSETRON HCL INJ 2MG/ML 2ML 2 MG/ML VIAL IV PRN ×2 (08:35→16:14)
--- NOTE | 2020-02-28 09:23 | Progress Note ---
DATE: 02/28/2020 CHIEF COMPLAINT/HISTORY OF PRESENT ILLNESS: This is a 69-year-old white woman, whose primary treating diagnosis was persistent small-bowel obstruction. On February 23, the patient underwent exploratory laparotomy with lysis of adhesions and release of small-bowel obstruction. The general surgeon stated that the patient had a small-bowel obstruction secondary to internal hernia from a congenital intestinal malrotation. The patient tolerated surgery quite well. The patient's white blood cell count today is 7000 with 72% segmented neutrophils. Hemoglobin is 11.4 g/dL. The patient's BUN and creatinine today 6 and 0.77 respectively. The patient's potassium 3.6. The patient's total bilirubin is slightly elevated at 1.3. AST and ALT are 27 and 24 respectively. The patient denies any flatus or belching. The patient also denies any bowel movements. The patient still has a nasogastric tube in place. REVIEW OF SYSTEMS: As per HPI. PHYSICAL EXAMINATION: GENERAL: She is awake. She is alert. She is fully oriented. She is in no distress. She is very pleasant and cooperative on exam. VITAL SIGNS: Blood pressure is 174/88, pulse 104, respiratory rate is 18, oxygen saturation is 95% on room air, temperature 97.5, height 5 feet 5 inches, weight 150 pounds. BMI is 25. INTEGUMENT: Skin is warm and dry. No pallor, jaundice, or diaphoresis. HEENT: Anterior sclerae with moist mucous membranes. The patient has a nasogastric tube in place. NECK: Supple. CARDIOVASCULAR: Tachycardic rate with regular rhythm. The patient has S4 gallop. LUNGS: No rales, no rhonchi, no wheezes. ABDOMEN: Slight distention. Bowel sounds are auscultated. The exploratory laparotomy incision is currently dressed. EXTREMITIES: No edema or deformity. NEUROLOGIC: Intact. DIAGNOSES: 1. Status post exploratory laparotomy with lysis of adhesions and release of small-bowel obstruction. 2. Persistent small-bowel obstruction, resolved. 3. Hypertensive heart disease. 4. Acute renal insufficiency, resolved. 5. Tobacco abuse. 6. Chronic bronchitis. PLAN: 1. We will restart oral blood pressure medications namely amlodipine and benazepril for blood pressure control. 2. Clamp nasogastric tube. 3. Continue intravenous fluids at this time, since the patient is still not taking anything by mouth. 4. Continue intravenous antibiotics. 5. Mobilize the patient with physical therapy. 6. Encourage incentive spirometer use to prevent atelectasis. I spent 30 minutes in care of the patient. MD LUKE Gonzalez/TAVIA /[id number] MTDD
[2020-02-28] MEDS: BENAZEPRIL HCL 10 MG TAB PO SCH ×2 (09:53→09:54)
[2020-02-28] MEDS: AMLODIPINE BESYLATE 5 MG TAB PO SCH ×2 (09:53→09:54)
--- NOTE | 2020-02-28 10:20 | NUR ---
DR. LOPEZ HERE TO SEE PT, B/P MED PRESCRIBED. VIA TUBE.
--- NOTE | 2020-02-28 11:40 | NUR ---
DR.P. DELEON HERE TO SEE PT.
--- NOTE | 2020-02-28 11:40 | NUR ---
DR. Erica PETERSON ASKED THAT PT NGT. REMAIN CLAMPED AT THIS TIME.
--- NOTE | 2020-02-28 12:06 | NUR ---
PT OOB TO BEDSIDE CHAIR. TOLERATED WELL.
[2020-02-28] MEDS: BISACODYL 10 MG SUPP PR SCH (16:13)
[2020-02-28] MEDS: PANTOPRAZOLE 40 MG 10ML VIAL IV SCH (18:26)
--- NOTE | 2020-02-28 19:27 | NUR ---
REPORT GIVEN TO ONCOMING NURSE, WALKING ROUNDS COMPLETE.
--- NOTE | 2020-02-28 19:30 | NUR ---
SPOKE WITH MD Roopa PETERSON, PATIENT JUST HAD BM. ORDERS TO REMOVE NG TUBE BUT KEEP PATIENT NPO.
--- NOTE | 2020-02-28 19:40 | NUR ---
REMOVED NG TUBE AT THIS TIME. PATIENT TOLERATED WELL. NO NAUSEA. 75ML OF NEW DRAINAGE NOTED TO CANISTER. WILL CONTINUE TO MONITOR.
--- NOTE | 2020-02-28 19:59 | NUR ---
DRESSING APPLIED TO INCISION AND ABD BINDER REPLACED.
[2020-02-29] VITALS (8 sets, daily range): BP systolic 125–161; BP diastolic 63–90
[2020-02-29] MEDS: HYDROMORPHONE 1MG/1ML INJ IV PRN ×6 (02:11→20:15)
[2020-02-29] MEDS: DEXTROSE 5%/LACTATED RINGERS 1,000 ML IV SCH (02:11)
[2020-02-29] MEDS: METOCLOPRAMIDE HCL 10 MG/2ML VIAL IV SCH ×3 (06:04→17:36)
[2020-02-29] MEDS: PIPERACILLIN/TAZO 2.25 GM 50 ML IV SCH ×2 (06:04→15:12)
[2020-02-29 06:08] LABS: BASOPHILS % 0.3 % (0.0-1.0); EOSINOPHILS # (AUTO) 0.1 (0.0-0.4); HEMOGLOBIN 10.8 g/dL (12.0-16.0); LYMPHOCYTES # (AUTO) 1.2 (1.0-3.2); LYMPHOCYTES % 18.7 % (18.0-39.1); MEAN CORPUSCULAR HEMOGLOBIN 28.2 pg (28-32); MEAN CORPUSCULAR HGB CONC 31.8 g/dL (31-35); MEAN CORPUSCULAR VOLUME 88.8 fL (81-99); MONOCYTES # (AUTO) 0.6 (0.2-0.8); MONOCYTES % 9.3 % (4.4-11.3); NEUTROPHILS # (AUTO) 4.4 (2.1-6.9); NEUTROPHILS % 69.4 % (38.7-80.0); PLATELET COUNT 194 x10e3/uL (140-360); RED BLOOD COUNT 3.83 x10e6/uL (3.6-5.1); RED CELL DISTRIBUTION WIDTH 13.5 % (11.7-14.4)
[2020-02-29 06:29] LABS: ALANINE AMINOTRANSFERASE 27 IU/L (0-55); ALBUMIN 3.1 g/dL (3.5-5.0); ALBUMIN/GLOBULIN RATIO 1.1 (0.8-2.0); ALKALINE PHOSPHATASE 57 IU/L (40-150); ANION GAP 16.4 mmol/L (8-16); BLOOD UREA NITROGEN 7 mg/dL (7-26); BUN/CREATININE RATIO 9 (6-25); CALCIUM 7.9 mg/dL (8.4-10.2); CARBON DIOXIDE 24 mmol/L (22-29); CHLORIDE 103 mmol/L (98-107); CREATININE, SERUM 0.78 mg/dL (0.57-1.11); EST GLOMERULAR FILTRATION RATE > 60 ML/MIN (60-); GLUCOSE 103 mg/dL (74-118); POTASSIUM 3.4 mmol/L (3.5-5.1); SODIUM 140 mmol/L (136-145)
--- NOTE | 2020-02-29 07:00 | NUR ---
RECEIVED PATIENT RESTING IN BED NO S/S OF DISTRESS. BED LOW, WHEELS LOCKED, SIDE RAILS X2. CALL LIGHT IN REACH WILL CONTINUE TO MONITOR PATIENT.
[2020-02-29] MEDS ORDERED: BISACODYL 10 MG SUPP PR ONE (09:25)
[2020-02-29] MEDS: AMLODIPINE BESYLATE 5 MG TAB PO SCH (09:25)
[2020-02-29] MEDS: BENAZEPRIL HCL 10 MG TAB PO SCH (09:25)
[2020-02-29] MEDS ORDERED: POTASSIUM CHLORIDE 10MEQ EA PO ONE ×2 (11:10→12:15)
[2020-02-29] MEDS ORDERED: FUROSEMIDE INJ 10 MG/ML 4 ML VIAL IV ONE (11:15)
--- NOTE | 2020-02-29 11:39 | Progress Note ---
DATE: 02/29/2020 CHIEF COMPLAINT/HISTORY OF PRESENT ILLNESS: This is a 69-year-old white woman, whose primary treating diagnosis was persistent small-bowel obstruction. On Thursday, February 23 the patient underwent exploratory laparotomy with lysis of adhesions and release of small-bowel obstruction. The patient tolerated the surgery quite well. Yesterday, the patient's nasogastric tube was removed and she is able to tolerate small sips of water. The patient also had two bowel movements. The patient states she had two bowel movements and she is experiencing flatus, but no belching. The patient had blood work done today and was found to have white blood cell count of 6300 with 69% segmented neutrophils. Hemoglobin is 10.8 g/dL. The patient's BUN and creatinine are 7 and 0.78 respectively. The patient's potassium is 3.4. Total bilirubin today is 1.2. The patient's AST and ALT are 31 and 27 respectively. REVIEW OF SYSTEMS: As per HPI. PHYSICAL EXAMINATION: GENERAL: She is awake. She is alert. She is fully oriented. She is in no distress. VITAL SIGNS: BMI is 25. Blood pressure is 152/80, pulse is 96, respiratory rate 22, temperature 98.4. Temperature did get as high as 99.6 midnight this morning, oxygen saturation 96% on room air. INTEGUMENT: Skin is warm and dry. No pallor, jaundice, or diaphoresis. HEENT: Anterior sclerae. Moist mucous membranes. NECK: Supple. CARDIOVASCULAR: Distant heart sounds. Tachycardic rate, regular rhythm. The patient has an S4 gallop. LUNGS: The patient has wheezing bilaterally. ABDOMEN: Soft. She has bowel sounds in all four quadrants, nondistended, nontender. The expiratory laparotomy incision is currently dressed. EXTREMITIES: No edema or deformity. NEUROLOGIC: Intact. DIAGNOSES: 1. Status post exploratory laparotomy with lysis of adhesions and release of small-bowel obstruction. 2. Persistent small-bowel obstruction, resolved. 3. Ileus, resolved. 4. Hypertensive heart disease. 5. Acute renal insufficiency, resolved. 6. Tobacco abuse. 7. Chronic bronchitis. 8. Hypokalemia. PLAN: 1. We will stop intravenous fluids because the patient's wheezing and elevated blood pressure. 2. We will administer one dose of intravenous furosemide. 3. We will defer to the surgeon in regard to starting a clear liquid diet. 4. [facility]. 5. Blood pressure control. 6. Follow electrolytes and renal function. 7. Replete potassium level. 8. Recommend the patient continue using incentive spirometer to prevent atelectasis. I spent 30 minutes in the care of the patient. MD LUKE Gonzalez/TAVIA /[id number] MTDD
[2020-02-29] MEDS: BISACODYL 10 MG SUPP PR SCH (12:23)
--- NOTE | 2020-02-29 15:42 | NUR ---
Nutrition Intervention Note RD Recommendation for Physician: -Recommend advancing to GI soft diet when medically appropriate -If diet is unable to be advanced, consider alternative means of nutrition Plan of Care: RD following, monitoring for tolerance and adequacy Nutrition reason for involvement: follow up RD Assessment 02/28: Follow up. Chart reviewed. Pt remains NPO without any source of nutrition since 02/21. Pts NG tube was removed yesterday and is tolerating sips of water. Pt also had a BM. Recommend advancing diet when medically appropriate. Will continue to monitor. (02/25/20) Chart reviewed. Labs and meds reviewed. Pt is a 69 year old female admitted with abdominal pain, renal failure, and dehydration. Pt was found to have a small bowel obstruction per chart and had an exploratory laparotomy and lysis of adhesions yesterday. Pt has been on a NPO/clear liquid diet for 5 days. Attempted to speak to pt, but pt declined nutrition assessment be completed at this time. There are no reports of a decreased appetite or recent unintentional weight loss prior to admission per chart. Recommend advancing diet when medically appropriate. Will continue to monitor. Principal Problems/Diagnoses: abdominal pain, acute renal failure, dehydration PMH: Hypertensive heart disease, Tobacco abuse, Chronic bronchitis, Urinary incontinence. GI: soft/nontender/round abdomen, pt had 2 BM per MD note on 02/28 Skin: no pressure ulcers Labs: 02/28: Na 140, K 3.4, BUN 7, Cr 0.78, Glu 103, Ca 7.9 (02/24) Na 138, K 4.2, BUN 11, Cr 0.90, Glu 183, Ca 7.4 Meds: dilaudid, reglan, antibiotic, protonix, zofran, hydralazine Ht: 65 in Wt: 150 lb BMI: 25.0 kg/m2 IBW:125 lb Malnutrition Evaluation (02/25/20) The patient does not meet criteria for a specified degree of malnutrition at this time. Will re-evaluate at follow-up as appropriate. Energy intake: <50% of estimated energy requirements for 5 days Weight loss: No weight loss reported per chart Fat loss: unable to evaluate (pt refused nutrition assessment) Muscle loss: unable to evaluate (pt refused nutrition assessment) Supporting Evidence: Fluid accumulation: no edema per MD note Functional Status: unable to evaluate Nutrition Prescription (Diet Order): NPO Estimated Nutritional Needs: 2547-7972 calories/day (25-30 kcal/kg CBW) 68-102g protein/day (1.0-1.5 g pro/kg CBW) Diet Adequacy: Not meeting calorie needs, Not meeting protein needs Tolerance: N/A (pt remains NPO) Diet Education Needs Assessment: Diet education not indicated, patient on temporary/transition diet. Nutrition Care Level: high Nutrition Diagnosis: Inadequate energy intake related to decreased ability to consume sufficient energy as evidenced by insufficient energy intake from diet compared to needs Goal: Patient will meet 75-100% of estimated needs by follow up Progress: goal not met Interventions: -fiber- modified diet Monitoring/Evaluation: -Total energy intake, Total protein intake, , Modified diet, Weight change Signed: Taniya Medrano RD, LD
[2020-02-29] MEDS: PANTOPRAZOLE 40 MG 10ML VIAL IV SCH (17:36)
[2020-02-29] MEDS: ONDANSETRON HCL INJ 2MG/ML 2ML 2 MG/ML VIAL IV PRN (20:15)
[2020-03-01] VITALS (7 sets, daily range): BP systolic 127–150; BP diastolic 70–83
[2020-03-01] MEDS: HYDROMORPHONE 1MG/1ML INJ IV PRN ×3 (00:15→22:52)
[2020-03-01] MEDS: METOCLOPRAMIDE HCL 10 MG/2ML VIAL IV SCH ×4 (00:15→17:19)
[2020-03-01 05:36] LABS: BASOPHILS % 0.6 % (0.0-1.0); EOSINOPHILS # (AUTO) 0.1 (0.0-0.4); EOSINOPHILS % 1.7 % (0.0-6.0); HEMOGLOBIN 10.7 g/dL (12.0-16.0); LYMPHOCYTES # (AUTO) 1.2 (1.0-3.2); LYMPHOCYTES % 17.3 % (18.0-39.1); MEAN CORPUSCULAR HEMOGLOBIN 27.8 pg (28-32); MEAN CORPUSCULAR HGB CONC 31.5 g/dL (31-35); MEAN CORPUSCULAR VOLUME 88.3 fL (81-99); MONOCYTES # (AUTO) 0.7 (0.2-0.8); MONOCYTES % 9.1 % (4.4-11.3); NEUTROPHILS # (AUTO) 5.1 (2.1-6.9); NEUTROPHILS % 70.9 % (38.7-80.0); PLATELET COUNT 231 x10e3/uL (140-360); RED BLOOD COUNT 3.85 x10e6/uL (3.6-5.1); RED CELL DISTRIBUTION WIDTH 13.5 % (11.7-14.4)
[2020-03-01 06:11] LABS: ALANINE AMINOTRANSFERASE 31 IU/L (0-55); ALBUMIN 3.4 g/dL (3.5-5.0); ALBUMIN/GLOBULIN RATIO 1.2 (0.8-2.0); ALKALINE PHOSPHATASE 59 IU/L (40-150); ANION GAP 18.8 mmol/L (8-16); BLOOD UREA NITROGEN 10 mg/dL (7-26); BUN/CREATININE RATIO 12 (6-25); CALCIUM 8.1 mg/dL (8.4-10.2); CARBON DIOXIDE 24 mmol/L (22-29); CHLORIDE 100 mmol/L (98-107); CREATININE, SERUM 0.83 mg/dL (0.57-1.11); EST GLOMERULAR FILTRATION RATE > 60 ML/MIN (60-); GLUCOSE 78 mg/dL (74-118); POTASSIUM 3.8 mmol/L (3.5-5.1); SODIUM 139 mmol/L (136-145)
--- NOTE | 2020-03-01 07:00 | NUR ---
RECEIVED PATIENT RESTING IN BED NO S/S OF DISTRESS. BED LOW, WHEELS LOCKED, SIDE RAILS X2. CALL LIGHT IN REACH WILL CONTINUE TO MONITOR PATIENT.
--- NOTE | 2020-03-01 08:29 | Discharge Summary ---
ADMISSION DIAGNOSES: 1. Sepsis, likely secondary ileitis. 2. Small bowel obstruction. 3. Hiatal hernia. 4. Hypertensive heart disease. 5. Tobacco use. 6. Chronic bronchitis. 7. Acute renal insufficiency secondary to acute tubular necrosis. DISCHARGE DIAGNOSES: 1. Sepsis secondary to ileitis, resolved. 2. Status post exploratory laparotomy with lysis of adhesions and release of small-bowel obstruction. 3. Acute renal insufficiency secondary to acute tubular necrosis, resolved. 4. Hypertensive heart disease. 5. Hiatal hernia. 6. Tobacco abuse. 7. Chronic bronchitis. 8. Congenital intestinal malrotation. HOSPITAL COURSE: This is a 69-year-old white woman, who was initially admitted to [facility] with diagnosis of sepsis secondary to likely ileitis. She was also diagnosed with small-bowel obstruction on admission. Moreover, she was found to have acute renal insufficiency on admission that was thought to be secondary to acute tubular necrosis. On admission, the patient's BUN and creatinine were 35 and 4.03 respectively. On day of discharge, the patient's BUN and creatinine were 10 and 0.83 respectively. During this hospitalization, the patient's amlodipine and benazepril were held because of her acute renal insufficiency as well as her hypotension secondary to sepsis on admission. The patient's lactic acid level did get as high as 3.5 during the hospital stay, but it did normalize to 1.1. On admission, the patient's white blood cell count 13,400 with 83% segmented neutrophils. On day of discharge, white blood cell count was 7100 with 70% segmented neutrophils. On admission, the patient underwent a CT of the abdomen and pelvis that revealed findings consistent with a small bowel obstruction in the right upper to mid abdomen area likely in the ileum. The patient did not improve clinically, thus she underwent a repeat CT abdomen and pelvis on February 23, 2020, which confirmed persistent distal small-bowel obstruction as well as findings consistent with congenital malrotation. The patient was taken to the operating room by her surgeon namely Dr. Kenneth Mckinley. The surgeon performed exploratory laparotomy as well as lysis of adhesions and release of small-bowel obstruction. The surgeon stated that the small bowel obstruction was secondary to internal hernia from congenital intestinal malrotation. The patient tolerated surgery quite well. Prior to being discharged, she was tolerating a regular diet and was experiencing belching, flatus, as well as multiple bowel movements. During this hospitalization, she did receive intravenous antibiotics, namely the Zosyn. The patient's discharge was postponed for one day, so that we could ascertain whether she could tolerate a regular diet before discharge. CONDITION ON DISCHARGE: Stable. DISCHARGE MEDICATIONS: 1. Amlodipine 5 mg daily. 2. Benazepril 10 mg daily. 3. Hydrocodone/acetaminophen 7.5 mg/325 one p.o. b.i.d. p.r.n. pain. 4. Vitamin D3 5000 units daily. FOLLOWUP INSTRUCTIONS: The patient is instructed to follow up with Dr. Kenneth Mckinley in one week and with her primary care physician namely myself, Dr. Sam Barger also within next 7 to 10 days. Tobacco cessation was highly recommended to the patient. Sam Barger MD MEO/JOSEL /[id number] cc: Kenneth Mckinley MD MTDD
[2020-03-01] MEDS: BENAZEPRIL HCL 10 MG TAB PO SCH (08:35)
[2020-03-01] MEDS: AMLODIPINE BESYLATE 5 MG TAB PO SCH (08:35)
[2020-03-01] MEDS: HYDROCODONE/APAP 7.5MG-325MG 1 EA TAB PO PRN ×3 (08:35→17:19)
[2020-03-01] MEDS: PANTOPRAZOLE 40 MG 10ML VIAL IV SCH (17:19)
[2020-03-02] VITALS: BP 136/73
[2020-03-02] MEDS: METOCLOPRAMIDE HCL 10 MG/2ML VIAL IV SCH ×3 (01:51→12:41)
[2020-03-02] MEDS: HYDROCODONE/APAP 7.5MG-325MG 1 EA TAB PO PRN ×3 (02:36→12:41)
[2020-03-02 04:00] VITALS: BP 106/70
[2020-03-02 06:15] LABS: BASOPHILS # (AUTO) 0.1 (0.0-0.1); BASOPHILS % 0.5 % (0.0-1.0); EOSINOPHILS # (AUTO) 0.3 (0.0-0.4); EOSINOPHILS % 2.8 % (0.0-6.0); HEMATOCRIT 32.1 % (34.2-44.1); HEMOGLOBIN 10.1 g/dL (12.0-16.0); LYMPHOCYTES # (AUTO) 1.1 (1.0-3.2); LYMPHOCYTES % 11.7 % (18.0-39.1); MEAN CORPUSCULAR HEMOGLOBIN 27.7 pg (28-32); MEAN CORPUSCULAR HGB CONC 31.5 g/dL (31-35); MEAN CORPUSCULAR VOLUME 87.9 fL (81-99); MONOCYTES # (AUTO) 0.7 (0.2-0.8); MONOCYTES % 7.2 % (4.4-11.3); NEUTROPHILS # (AUTO) 7.4 (2.1-6.9); NEUTROPHILS % 77.3 % (38.7-80.0); PLATELET COUNT 244 x10e3/uL (140-360); RED BLOOD COUNT 3.65 x10e6/uL (3.6-5.1); RED CELL DISTRIBUTION WIDTH 13.4 % (11.7-14.4)
[2020-03-02 06:51] LABS: ALANINE AMINOTRANSFERASE 38 IU/L (0-55); ALBUMIN 3.2 g/dL (3.5-5.0); ALBUMIN/GLOBULIN RATIO 1.1 (0.8-2.0); ALKALINE PHOSPHATASE 68 IU/L (40-150); ANION GAP 16.9 mmol/L (8-16); BLOOD UREA NITROGEN 10 mg/dL (7-26); BUN/CREATININE RATIO 13 (6-25); CALCIUM 7.8 mg/dL (8.4-10.2); CARBON DIOXIDE 24 mmol/L (22-29); CHLORIDE 102 mmol/L (98-107); CREATININE, SERUM 0.78 mg/dL (0.57-1.11); EST GLOMERULAR FILTRATION RATE > 60 ML/MIN (60-); GLUCOSE 76 mg/dL (74-118); POTASSIUM 3.9 mmol/L (3.5-5.1); SODIUM 139 mmol/L (136-145)
--- NOTE | 2020-03-02 07:00 | NUR ---
RECEIVED PATIENT RESTING IN BED NO S/S OF DISTRESS. BED LOW, WHEELS LOCKED, SIDE RAILS X2. CALL LIGHT IN REACH WILL CONTINUE TO MONITOR PATIENT.
[2020-03-02 08:00] VITALS: BP 111/56
[2020-03-02 09:15] VITALS: BP 111/56
[2020-03-02] MEDS: BENAZEPRIL HCL 10 MG TAB PO SCH (09:29)
[2020-03-02] MEDS: AMLODIPINE BESYLATE 5 MG TAB PO SCH (09:29)
[2020-03-02 12:00] VITALS: BP 140/75
--- NOTE | 2020-03-02 15:10 | NUR ---
REMOVED PATIENTS PICC LINE. CATHETER TIP INTACT ON REMOVAL AND PRESSURE DRESSING APPLIED.
--- NOTE | 2020-03-02 16:02 | NUR ---
PATIENT DISCHARGED FROM FACILITY. PATIENT GATHERED ALL PERSONAL BELONGINGS, DISCHARGE INSTRUCTIONS AND FOLLOW UP INFORMATION. PATIENT LEFT UNIT IN WHEELCHAIR AND WENT HOME VIA PRIVATE AUTO. NO S/S OF DISTRESS LEAVING FACILITY.
== END 2020-03-02 16:02 | disposition home or self-care (01) | DRG 853 ==
LOC: ER 11:20 → ERHOLD 16:30 → MED/SURG3 22:01 → IMCU 02-24 19:11 → MED/SURG 02-27 16:46
PROVIDERS: ADMIT Internal Medicine; ATTEND Internal Medicine
PROC: 0DN80ZZ Release Small Intestine, Open Approach (ICD-10-PCS; principal; 2020-02-20)
PROC: 0DS80ZZ Reposition Small Intestine, Open Approach (ICD-10-PCS; 2020-02-20)
PROC: 02HV33Z Insertion of Infusion Device into Superior Vena Cava, Percutaneous Approach (ICD-10-PCS; 2020-02-24)
DX: A41.9 Sepsis, unspecified organism (principal); N17.0 Acute kidney failure with tubular necrosis; K56.601 Complete intestinal obstruction, unspecified as to cause; K46.0 Unspecified abdominal hernia with obstruction, without gangrene; K56.7 Ileus, unspecified; Q43.3 Congenital malformations of intestinal fixation; E87.2 Acidosis; I11.9 Hypertensive heart disease without heart failure; E87.6 Hypokalemia; F17.200 Nicotine dependence, unspecified, uncomplicated; Z79.891 Long term (current) use of opiate analgesic; M51.36 Other intervertebral disc degeneration, lumbar region; G89.29 Other chronic pain; Z11.59 Encounter for screening for other viral diseases
CPT/HCPCS: 36415; 36569; 51700; 71045; 74019; 74176; 80048; 80053; 80307; 81001; 82150; 82550; 82553; 83605; 83690; 83735; 84484; 85025; 85610; 85730; 87040; 87086; 93005; 97139; 99285; J0330; J0360; J1100; J1170; J1940; J2001; J2250; J2270; J2370; J2405; J2543; J2550; J2710; J2765; J3010; J3480; J7030; J7070; J7799; U0002

== ENCOUNTER → 2021-06-26 | Outpatient (CLI) | payer MEDICARE | LOC: MRI 08:41 | PROVIDERS: ATTEND Specialist | DX: M47.892 Other spondylosis, cervical region (principal); M47.897 Other spondylosis, lumbosacral region | CPT/HCPCS: 72141; 72148 ==

== ENCOUNTER 2022-02-08 19:42 | Emergency (ER) | payer MEDICARE ==
[~2022-02-08] VITALS: Ht 165.1 cm; Wt 68.0 kg
[2022-02-08 20:04] LABS: BASOPHILS % 0.6 % (0.0-1.0); EOSINOPHILS # (AUTO) 0.2 (0.0-0.4); EOSINOPHILS % 2.4 % (0.0-6.0); HEMATOCRIT 43.7 % (34.2-44.1); HEMOGLOBIN 13.8 g/dL (12.0-16.0); LYMPHOCYTES # (AUTO) 1.7 (1.0-3.2); LYMPHOCYTES % 26.6 % (18.0-39.1); MEAN CORPUSCULAR HEMOGLOBIN 29.1 pg (28-32); MEAN CORPUSCULAR HGB CONC 31.6 g/dL (31-35); MONOCYTES # (AUTO) 0.4 (0.2-0.8); MONOCYTES % 7.1 % (4.4-11.3); NEUTROPHILS # (AUTO) 3.9 (2.1-6.9); PLATELET COUNT 158 x10e3/uL (140-360); RED BLOOD COUNT 4.75 x10e6/uL (3.6-5.1); RED CELL DISTRIBUTION WIDTH 12.9 % (11.7-14.4)
[2022-02-08 20:25] LABS: ALBUMIN 3.7 g/dL (3.5-5.0); ANION GAP 15.9 mmol/L (8-16); CALCIUM 8.5 mg/dL (8.4-10.2); CREATININE, SERUM 0.95 mg/dL (0.57-1.11); POTASSIUM 3.9 mmol/L (3.5-5.1)
[2022-02-08] MEDS ORDERED: ASPIRIN 325 MG TAB PO ONE (20:30)
[2022-02-08 20:31] LABS: CREATINE KINASE MB 2.9 ng/mL (0-5.0)
[2022-02-08] MEDS ORDERED: ONDANSETRON ODT4 MG PO (22:24)
== END 2022-02-08 22:31 | disposition home or self-care (01) ==
LOC: ER 19:59
DX: R42 Dizziness and giddiness (principal); R07.9 Chest pain, unspecified; R11.2 Nausea with vomiting, unspecified; I10 Essential (primary) hypertension; F17.210 Nicotine dependence, cigarettes, uncomplicated
CPT/HCPCS: 36415; 70450; 71045; 80053; 82550; 82553; 84484; 85025; 93005; 99283

== ENCOUNTER 2022-04-23 12:00 | Emergency (ER) | payer MEDICARE ==
[~2022-04-23] VITALS: Ht 165.1 cm; Wt 68.0 kg
[~2022-04-23 12:00] MED LIST: ONDANSETRON ODT4 MG PO
[2022-04-23] MEDS ORDERED: AMOX TR-K CLV1 EAC2 PO (13:52)
[2022-04-23] MEDS ORDERED: PREDNISONE20 MG PO (13:53)
[2022-04-23] MEDS ORDERED: ALBUTEROL2.5 MG/3 M INH (13:54)
[2022-04-23] MEDS ORDERED: PROVENTIL HFA6.7 GM INH (13:55)
[2022-04-23] MEDS ORDERED: BENZONATATE200 MG PO (13:56)
== END 2022-04-23 14:12 | disposition home or self-care (01) ==
LOC: FSED 12:16
DX: R05.9 Cough, unspecified (principal); J20.9 Acute bronchitis, unspecified; R07.89 Other chest pain; R06.2 Wheezing; I10 Essential (primary) hypertension; F17.210 Nicotine dependence, cigarettes, uncomplicated
CPT/HCPCS: 99282

== ENCOUNTER 2024-04-20 15:13 | Inpatient (IN) | payer MEDICARE ==
[2024-04-20] VITALS (19 sets, daily range): BP systolic 92–137; BP diastolic 59–85; PULSE 50–88; RESP 14–23; TEMP 97.4–97.9; O2SAT 99–100
[~2024-04-20] VITALS: Ht 165.1 cm; Wt 61.4 kg
[~2024-04-20 15:13] MED LIST changes: +ALBUTEROL2.5 MG/3 M INH; +AMOX TR-K CLV1 EAC2 PO; +BENZONATATE200 MG PO; +PREDNISONE20 MG PO; +PROVENTIL HFA6.7 GM INH
[2024-04-20 15:42] LABS: EOSINOPHILS # (AUTO) 0.2 (0.0-0.4); EOSINOPHILS % 3.6 % (0.0-6.0); HEMATOCRIT 45.9 % (34.2-44.1); HEMOGLOBIN 14.2 g/dL (12.0-16.0); LYMPHOCYTES # (AUTO) 1.4 (1.0-3.2); LYMPHOCYTES % 33.4 % (18.0-39.1); MEAN CORPUSCULAR HEMOGLOBIN 29.5 pg (28-32); MEAN CORPUSCULAR HGB CONC 30.9 g/dL (31-35); MEAN CORPUSCULAR VOLUME 95.2 fL (81-99); MONOCYTES # (AUTO) 0.3 (0.2-0.8); MONOCYTES % 6.8 % (4.4-11.3); NEUTROPHILS # (AUTO) 2.3 (2.1-6.9); NEUTROPHILS % 55.2 % (38.7-80.0); PLATELET COUNT 135 x10e3/uL (140-360); RED BLOOD COUNT 4.82 x10e6/uL (3.6-5.1); WHITE BLOOD COUNT 4.13 x10e3/uL (4.8-10.8)
[2024-04-20] MEDS: ONDANSETRON HCL INJ 2MG/ML 2ML 2 MG/ML VIAL IV STA (15:44)
[2024-04-20] MEDS: ASPIRIN 81 MG CHEW TAB PO ONE (15:44)
[2024-04-20] MEDS: METOPROLOL TARTRATE INJ 1 MG/ML VIAL IV ONE (15:44)
[2024-04-20] MEDS ORDERED: METOPROLOL TARTRATE INJ 1 MG/ML VIAL ONE (15:45)
[2024-04-20] MEDS ORDERED: ONDANSETRON HCL INJ 2MG/ML 2ML 2 MG/ML VIAL ONE (15:45)
[2024-04-20] MEDS ORDERED: ASPIRIN 81 MG CHEW TAB ONE (15:47)
[2024-04-20 16:04] LABS: ALBUMIN 4.2 g/dL (3.5-5.0); ALBUMIN/GLOBULIN RATIO 1.1 (0.8-2.0); BILIRUBIN,TOTAL 0.6 mg/dL (0.2-1.2); CALCIUM 9.1 mg/dL (8.4-10.2); CREATININE, SERUM 1.08 mg/dL (0.57-1.11)
[2024-04-20 16:10] LABS: TROPONIN I 0.031 ng/mL (0-0.300)
[2024-04-20] MEDS ORDERED: HYDROCODONE/APAP 5MG-325MG TAB PO PRN (17:45)
[2024-04-20] MEDS ORDERED: ONDANSETRON HCL INJ 2MG/ML 2ML 2 MG/ML VIAL IV PRN (17:45)
[2024-04-20] MEDS: ATORVASTATIN 40 MG TAB PO SCH (20:26)
[2024-04-20] MEDS: HEPARIN SOD (PORCINE) 1000 UNIT/ML 30ML ONE (20:38)
[2024-04-20] MEDS: HEPARIN SOD/SOD CHLORIDE 2,000 ML ONE (20:38)
[2024-04-20] MEDS: SODIUM CHLORIDE 0.9% 1000ML 1,000 ML ONE (20:39)
[2024-04-20] MEDS: NITROGLYCERIN/D5W 200 MCG/ML 250 ML ONE (20:39)
[2024-04-20] MEDS: VERAPAMIL HCL 2.5 MG/ML 2 ML VIAL ONE (20:40)
[2024-04-20] MEDS: IOPAMIDOL 370 MG/ML 100 ML INFUS..BTL INJ ONE (20:40)
[2024-04-20] MEDS: MIDAZOLAM HCL 2 MG/2 ML VIAL ONE (20:40)
[2024-04-20] MEDS: LIDOCAINE HCL 2% LOCAL 20 ML VIAL ONE (20:40)
[2024-04-20] MEDS: FENTANYL CITRATE/PF 100MCG/2 ML INJ ONE (20:41)
[2024-04-20] MEDS: METOPROLOL TARTRATE INJ 1 MG/ML VIAL ONE (20:42)
[2024-04-20] MEDS: SODIUM CHLORIDE 0.9% 250ML 250 ML ONE (20:43)
[2024-04-20] MEDS: CLOPIDOGREL BISULFATE 75 MG TAB ONE (20:43)
[2024-04-20] MEDS: ADENOSINE 6MG/2ML 1 ML ONE (20:43)
[2024-04-20] MEDS: ATROPINE SULFATE 0.1 MG/ML 10ML SYR ONE (20:43)
[2024-04-20] MEDS: SODIUM CHLORIDE 0.9% 1000ML 1,000 ML IV SCH (20:44)
[2024-04-21] VITALS (23 sets, daily range): BP systolic 109–152; BP diastolic 49–115; PULSE 40–82; RESP 16–24; TEMP 98–98.3; O2SAT 71–100
[2024-04-21] MEDS ORDERED: MAGNESIUM/ALUMINUM/SIMETHICONE 30 ML UDC PO PRN (01:00)
[2024-04-21] MEDS ORDERED: DOCUSATE SODIUM 100 MG CAP PO PRN (01:00)
[2024-04-21] MEDS ORDERED: GUAIFENESIN/DEXTROMETHORPHAN LIQD 5 ML UDC PO PRN (01:00)
[2024-04-21] MEDS ORDERED: HYDRALAZINE HCL 20 MG/ML VIAL IV PRN (01:00)
[2024-04-21] MEDS ORDERED: MELATONIN 3 MG TAB PO PRN (01:00)
[2024-04-21] MEDS ORDERED: ACETAMINOPHEN 325 MG TAB PO PRN (01:00)
[2024-04-21] MEDS ORDERED: ALBUTEROL SULF 0.083% NEB SOLN 3 ML NEB NEB PRN (01:15)
[2024-04-21 04:36] LABS: BASOPHILS % 0.6 % (0.0-1.0); EOSINOPHILS # (AUTO) 0.1 (0.0-0.4); EOSINOPHILS % 2.8 % (0.0-6.0); HEMATOCRIT 38.6 % (34.2-44.1); LYMPHOCYTES # (AUTO) 1.4 (1.0-3.2); LYMPHOCYTES % 27.9 % (18.0-39.1); MEAN CORPUSCULAR HEMOGLOBIN 29.6 pg (28-32); MEAN CORPUSCULAR HGB CONC 31.1 g/dL (31-35); MEAN CORPUSCULAR VOLUME 95.1 fL (81-99); MONOCYTES # (AUTO) 0.4 (0.2-0.8); MONOCYTES % 8.3 % (4.4-11.3); NEUTROPHILS % 60.2 % (38.7-80.0); PLATELET COUNT 130 x10e3/uL (140-360); RED BLOOD COUNT 4.06 x10e6/uL (3.6-5.1); WHITE BLOOD COUNT 5.05 x10e3/uL (4.8-10.8)
[2024-04-21 04:47] LABS: ANION GAP 11.9 mmol/L (8-16); CALCIUM 8.2 mg/dL (8.4-10.2); CREATININE, SERUM 0.86 mg/dL (0.57-1.11); POTASSIUM 3.9 mmol/L (3.5-5.1)
[2024-04-21 05:07] LABS: THYROID STIMULATING HORMONE 0.603 uIU/mL (0.350-4.940)
[2024-04-21] MEDS: CLOPIDOGREL BISULFATE 75 MG TAB PO SCH (08:22)
[2024-04-21] MEDS: METOPROLOL SUCCINATE 25 MG TAB XL PO SCH ×2 (08:24→11:59)
[2024-04-21] MEDS: MULTIVITAMINS/MINERALS TAB PO SCH (08:25)
[2024-04-21] MEDS: ASPIRIN 81 MG CHEW TAB PO SCH (08:25)
== END 2024-04-21 16:25 | disposition home or self-care (01) | DRG 321 ==
LOC: ER 15:20 → CATH LAB 15:59 → ERHOLD 17:32 → ICU 19:50
PROVIDERS: ADMIT Internal Medicine; ATTEND Internal Medicine
PROC: 027137Z Dilation of Coronary Artery, Two Arteries with Four or More Drug-eluting Intraluminal Devices, Percutaneous Approach (ICD-10-PCS; principal; 2024-04-20)
PROC: 02C03ZZ Extirpation of Matter from Coronary Artery, One Artery, Percutaneous Approach (ICD-10-PCS; 2024-04-20)
PROC: 4A023N7 Measurement of Cardiac Sampling and Pressure, Left Heart, Percutaneous Approach (ICD-10-PCS; 2024-04-20)
PROC: B2111ZZ Fluoroscopy of Multiple Coronary Arteries using Low Osmolar Contrast (ICD-10-PCS; 2024-04-20)
DX: I21.19 ST elevation (STEMI) myocardial infarction involving other coronary artery of inferior wall (principal); I50.32 Chronic diastolic (congestive) heart failure; I11.0 Hypertensive heart disease with heart failure; E78.5 Hyperlipidemia, unspecified; I25.10 Atherosclerotic heart disease of native coronary artery without angina pectoris; J42 Unspecified chronic bronchitis; I95.81 Postprocedural hypotension; Z79.82 Long term (current) use of aspirin; Z79.02 Long term (current) use of antithrombotics/antiplatelets; Z90.49 Acquired absence of other specified parts of digestive tract; Z90.710 Acquired absence of both cervix and uterus; Z90.722 Acquired absence of ovaries, bilateral; Z90.79 Acquired absence of other genital organ(s); F17.210 Nicotine dependence, cigarettes, uncomplicated; Z82.49 Family history of ischemic heart disease and other diseases of the circulatory system
CPT/HCPCS: 36415; 71045; 76937; 80048; 80053; 80061; 83036; 83690; 83735; 83880; 84443; 84484; 85025; 85347; 92928; 92973; 93005; 93306; 93458; 94799; 99152; 99153; 99252; 99284; C1725; C1757; C1874; C1887; J0153; J1644; J2003; J2250; J2405; J7030; J7050; Q9967

== ENCOUNTER → 2024-11-30 | Outpatient (REF) | payer MEDICARE | LOC: DX 09:33 | PROVIDERS: ATTEND Internal Medicine | DX: N64.4 Mastodynia (principal); M85.88 Other specified disorders of bone density and structure, other site | CPT/HCPCS: 77066; 77080 ==

== ENCOUNTER 2024-12-10 11:01 | Emergency (ER) | payer MEDICARE ==
[~2024-12-10] VITALS: Ht 165.1 cm; Wt 63.5 kg
[2024-12-10 11:21] VITALS: PULSE 73; RESP 16; TEMP 97.8
[2024-12-10 11:46] LABS: BASOPHILS % 0.5 % (0.0-1.0); EOSINOPHILS # (AUTO) 0.1 (0.0-0.4); EOSINOPHILS % 1.6 % (0.0-6.0); HEMOGLOBIN 11.7 g/dL (12.0-16.0); LYMPHOCYTES # (AUTO) 0.9 (1.0-3.2); LYMPHOCYTES % 19.7 % (18.0-39.1); MEAN CORPUSCULAR HEMOGLOBIN 29.1 pg (28-32); MEAN CORPUSCULAR HGB CONC 32.5 g/dL (31-35); MEAN CORPUSCULAR VOLUME 89.6 fL (81-99); MONOCYTES # (AUTO) 0.4 (0.2-0.8); MONOCYTES % 8.3 % (4.4-11.3); NEUTROPHILS % 69.7 % (38.7-80.0); PLATELET COUNT 154 x10e3/uL (140-360); RED BLOOD COUNT 4.02 x10e6/uL (3.6-5.1); RED CELL DISTRIBUTION WIDTH 14.3 % (11.7-14.4); WHITE BLOOD COUNT 4.32 x10e3/uL (4.8-10.8)
[2024-12-10] MEDS: SODIUM CHLORIDE 0.9% 1000ML 1,000 ML IV STA (11:51)
[2024-12-10] MEDS: ONDANSETRON HCL INJ 2MG/ML 2ML 2 MG/ML VIAL IV STA (11:51)
[2024-12-10] MEDS: DONNATAL/LIDOCAINE/MAALOX 30 ML SUSP PO SCH (11:57)
[2024-12-10 12:08] LABS: INR 0.91; PROTHROMBIN TIME 13.1 seconds (11.9-14.5)
[2024-12-10 12:09] LABS: PARTIAL THROMBOPLASTIN TIME 23.9 seconds (23.8-35.5)
[2024-12-10 12:18] LABS: ALBUMIN 3.6 g/dL (3.5-5.0); ALBUMIN/GLOBULIN RATIO 1.2 (0.8-2.0); ANION GAP 13.6 mmol/L (8-16); BILIRUBIN,TOTAL 0.7 mg/dL (0.2-1.2); CALCIUM 8.5 mg/dL (8.4-10.2); CREATININE, SERUM 1.22 mg/dL (0.57-1.11); MAGNESIUM 2.1 MG/DL (1.3-2.1); POTASSIUM 3.6 mmol/L (3.5-5.1); TOTAL PROTEIN 6.6 g/dL (6.5-8.1)
[2024-12-10 12:24] LABS: TROPONIN I 0.009 ng/mL (0-0.300)
[2024-12-10] MEDS ORDERED: CARAFATE1 GM PO (13:06)
[2024-12-10 13:37] VITALS: BP 137/68; PULSE 76; RESP 18; TEMP 98.2; O2SAT 100
== END 2024-12-10 13:37 | disposition home or self-care (01) ==
LOC: ER 11:10
DX: K21.9 Gastro-esophageal reflux disease without esophagitis (principal); N28.9 Disorder of kidney and ureter, unspecified; E86.0 Dehydration; I10 Essential (primary) hypertension; I25.10 Atherosclerotic heart disease of native coronary artery without angina pectoris; M54.9 Dorsalgia, unspecified; G89.29 Other chronic pain; I25.2 Old myocardial infarction; Z95.5 Presence of coronary angioplasty implant and graft
CPT/HCPCS: 36415; 71045; 80053; 83735; 84484; 85025; 85610; 85730; 93005; 99284; J2405; J2470; J7030

== ENCOUNTER 2024-12-18 14:42 | Emergency (ER) | payer MEDICARE ==
[~2024-12-18] VITALS: Ht 165.1 cm; Wt 63.5 kg
[~2024-12-18 14:42] MED LIST changes: +CARAFATE1 GM PO
[2024-12-18 14:50] VITALS: PULSE 87; RESP 17; TEMP 97.5; O2SAT 99
[2024-12-18] MEDS ORDERED: MAGNESIUM/ALUMINUM/SIMETHICONE 30 ML UDC ONE (15:09)
[2024-12-18] MEDS ORDERED: BELLADONNA ALK/PHENOBARBITAL 5 ML UDC ONE (15:09)
[2024-12-18] MEDS ORDERED: LIDOCAINE VISC 2% SOLN 15 ML UDC ONE (15:09)
[2024-12-18] MEDS: DONNATAL/LIDOCAINE/MAALOX 30 ML SUSP PO ONE (15:12)
[2024-12-20] MEDS ORDERED: AMLODIPINE BESY10 MG PO (17:11)
[2024-12-20] MEDS ORDERED: CLOPIDOGREL75 MG PO (17:11)
== END 2024-12-18 15:39 | disposition home or self-care (01) ==
LOC: ER 14:50
DX: K21.9 Gastro-esophageal reflux disease without esophagitis (principal); I10 Essential (primary) hypertension; I25.10 Atherosclerotic heart disease of native coronary artery without angina pectoris; B19.20 Unspecified viral hepatitis C without hepatic coma; M54.9 Dorsalgia, unspecified; G89.29 Other chronic pain; I25.2 Old myocardial infarction; Z95.5 Presence of coronary angioplasty implant and graft
CPT/HCPCS: 99282

== ENCOUNTER → 2024-12-26 | Day surgery (SDC) | payer MEDICARE ==
[2024-12-21 12:05] LABS: BASOPHILS % 0.6 % (0.0-1.0); EOSINOPHILS % 1.7 % (0.0-6.0); LYMPHOCYTES % 15.4 % (18.0-39.1); MONOCYTES % 9.0 % (4.4-11.3); NEUTROPHILS % 72.9 % (38.7-80.0); RED CELL DISTRIBUTION WIDTH 14.3 % (11.7-14.4)
[~2024-12-26] MED LIST changes: +AMLODIPINE BESY10 MG PO; +CLOPIDOGREL75 MG PO; +GLYCOPYRROLATE INJ 0.2 MG/ML VIAL ONE; +LIDOCAINE HCL 2% LOCAL INJ 5 ML SDV VIAL INJ ONE; +METOCLOPRAMIDE HCL 10 MG/2ML VIAL ONE; +ONDANSETRON HCL INJ 2MG/ML 2ML 2 MG/ML VIAL ONE; +PROPOFOL IV EMULSION 50 ML IV ONE
[2024-12-26] MEDS: LACTATED RINGER'S 1,000 ML ONE (09:51)
[2024-12-26 13:04] VITALS: TEMP 97.6
[2024-12-26 13:35] VITALS: BP 118/70; PULSE 76; RESP 16; O2SAT 97
== END | disposition home or self-care (01) ==
LOC: OR 09:27
PROVIDERS: ATTEND Internal Medicine Gastroenterology
DX: K21.00 Gastro-esophageal reflux disease with esophagitis, without bleeding (principal); K44.9 Diaphragmatic hernia without obstruction or gangrene; K31.9 Disease of stomach and duodenum, unspecified; K29.50 Unspecified chronic gastritis without bleeding; R19.5 Other fecal abnormalities; K64.8 Other hemorrhoids; D12.5 Benign neoplasm of sigmoid colon; D12.3 Benign neoplasm of transverse colon; K59.09 Other constipation; R19.6 Halitosis; I10 Essential (primary) hypertension; I25.10 Atherosclerotic heart disease of native coronary artery without angina pectoris; I25.2 Old myocardial infarction; Z95.5 Presence of coronary angioplasty implant and graft; Z87.891 Personal history of nicotine dependence; Z79.899 Other long term (current) drug therapy; Z79.02 Long term (current) use of antithrombotics/antiplatelets
CPT/HCPCS: 36415; 43239; 45385; 85025; 88305; J2003; J2405; J2470; J2704; J2765; J7121; 45380; 88342

== ENCOUNTER 2025-02-25 09:26 | Emergency (ER) | payer MEDICARE ==
[~2025-02-25] VITALS: Ht 165.1 cm; Wt 56.7 kg
[~2025-02-25 09:26] MED LIST changes: -GLYCOPYRROLATE INJ 0.2 MG/ML VIAL ONE; -LIDOCAINE HCL 2% LOCAL INJ 5 ML SDV VIAL INJ ONE; -METOCLOPRAMIDE HCL 10 MG/2ML VIAL ONE; -ONDANSETRON HCL INJ 2MG/ML 2ML 2 MG/ML VIAL ONE; -PROPOFOL IV EMULSION 50 ML IV ONE
[2025-02-25 09:38] VITALS: TEMP 98.6
[2025-02-25 10:03] LABS: BASOPHILS % 0.2 % (0.0-1.0); EOSINOPHILS % 1.4 % (0.0-6.0); LYMPHOCYTES % 23.4 % (18.0-39.1); MONOCYTES % 5.9 % (4.4-11.3); NEUTROPHILS % 68.9 % (38.7-80.0); RED CELL DISTRIBUTION WIDTH 13.9 % (11.7-14.4)
[2025-02-25 10:18] LABS: EST GLOMERULAR FILTRATION RATE 76.0 ML/MIN (>=60)
[2025-02-25] MEDS: ASPIRIN 81 MG CHEW TAB PO ONE (10:22)
[2025-02-25] MEDS: SODIUM CHLORIDE FLUSH 10 ML SYR IV PRN (10:22)
[2025-02-25] MEDS: HYDROCODONE/APAP 10MG-325MG TAB PO ONE (10:51)
[2025-02-25 10:57] LABS: EPITHELIAL CELLS,URINE FEW /LPF; LEUKOCYTE ESTERASE ,URINE TRACE (NEGATIVE); PROTEIN,URINE DIPSTICK TRACE (NEGATIVE); URINE UROBILINOGEN 1 mg/dL (0.2 - 1)
[2025-02-25 11:10] LABS: EOSINOPHILS % (MANUAL) 2 % (0-7); LYMPHOCYTES % (MANUAL) 24 % (19-48); MONOCYTES % (MANUAL) 4 % (3.4-9.0); NEUTROPHILS % (MANUAL) 68 % (40-74); PLATELET ESTIMATE ADEQUATE; PLATELET MORPHOLOGY COMMENT NORMAL; REACTIVE LYMPHOCYTES 2
[2025-02-25 12:26] VITALS: PULSE 75; RESP 18; O2SAT 97
== END 2025-02-25 12:40 | disposition home or self-care (01) ==
LOC: ER 09:32
DX: R07.89 Other chest pain (principal); B02.9 Zoster without complications; I10 Essential (primary) hypertension; I25.10 Atherosclerotic heart disease of native coronary artery without angina pectoris; B19.20 Unspecified viral hepatitis C without hepatic coma; M54.9 Dorsalgia, unspecified; G89.29 Other chronic pain; I25.2 Old myocardial infarction; Z95.5 Presence of coronary angioplasty implant and graft; F17.210 Nicotine dependence, cigarettes, uncomplicated
CPT/HCPCS: 36415; 70450; 71045; 80053; 81001; 84484; 85025; 93005; 94760; 99284

== ENCOUNTER 2025-02-27 09:48 | Emergency (ER) | payer MEDICARE ==
[~2025-02-27] VITALS: Ht 165.1 cm; Wt 56.7 kg
[2025-02-27 09:52] VITALS: TEMP 97.8
[2025-02-27 10:37] LABS: BASOPHILS % 0.5 % (0.0-1.0); EOSINOPHILS % 1.5 % (0.0-6.0); LYMPHOCYTES % 23.4 % (18.0-39.1); MONOCYTES % 7.8 % (4.4-11.3); NEUTROPHILS % 66.6 % (38.7-80.0); RED CELL DISTRIBUTION WIDTH 13.4 % (11.7-14.4)
[2025-02-27] MEDS: SODIUM CHLORIDE 0.9% 1000ML 1,000 ML IV STA (10:41)
[2025-02-27] MEDS: HYDROCODONE/APAP 10MG-325MG TAB PO ONE (10:41)
[2025-02-27 11:10] LABS: EST GLOMERULAR FILTRATION RATE 86.0 ML/MIN (>=60)
[2025-02-27] MEDS: POTASSIUM CHLORIDE 20 MEQ TAB CR PO STA (11:45)
[2025-02-27] MEDS: METHYLPREDNISOLONE SOD SUCC 125 MG/2ML VIAL IV STA (11:45)
[2025-02-27] MEDS: KCL 20 MEQ PACKET/ ORAL SOLN PO STA (11:45)
[2025-02-27] MEDS ORDERED: PREDNISONE50 MG PO (12:15)
[2025-02-27] MEDS ORDERED: GABAPENTIN300 MG PO (12:15)
[2025-02-27] MEDS ORDERED: POTASSIUM CHLO20 MEQ PO (12:15)
[2025-02-27] MEDS: LIDOCAINE 4% PATCH TP ONE (12:18)
[2025-02-27 12:19] VITALS: PULSE 90; RESP 18; O2SAT 100
== END 2025-02-27 12:29 | disposition home or self-care (01) ==
LOC: ER 09:57
DX: B02.29 Other postherpetic nervous system involvement (principal); R07.89 Other chest pain; E87.6 Hypokalemia; I10 Essential (primary) hypertension; I25.10 Atherosclerotic heart disease of native coronary artery without angina pectoris; B19.20 Unspecified viral hepatitis C without hepatic coma; M54.9 Dorsalgia, unspecified; G89.29 Other chronic pain; R94.31 Abnormal electrocardiogram [ECG] [EKG]; I25.2 Old myocardial infarction; Z95.5 Presence of coronary angioplasty implant and graft
CPT/HCPCS: 36415; 80053; 83735; 84484; 85025; 93005; 99284; J2919; J7030

== ENCOUNTER 2025-04-05 18:06 | Emergency (ER) | payer MEDICARE ==
[~2025-04-05] VITALS: Ht 165.1 cm; Wt 56.7 kg
[~2025-04-05 18:06] MED LIST changes: +GABAPENTIN300 MG PO; +POTASSIUM CHLO20 MEQ PO; +PREDNISONE50 MG PO
[2025-04-05 19:00] VITALS: PULSE 74; RESP 18; TEMP 98.3
[2025-04-05 19:07] LABS: BASOPHILS % 0.6 % (0.0-1.0); EOSINOPHILS % 1.0 % (0.0-6.0); LYMPHOCYTES % 23.4 % (18.0-39.1); MONOCYTES % 7.9 % (4.4-11.3); NEUTROPHILS % 67.1 % (38.7-80.0); RED CELL DISTRIBUTION WIDTH 15.6 % (11.7-14.4)
[2025-04-05 19:30] LABS: EST GLOMERULAR FILTRATION RATE 58.0 ML/MIN (>=60)
[2025-04-05] MEDS ORDERED: IOPAMIDOL 370 MG/ML 100 ML INFUS..BTL INJ ONE (19:48)
[2025-04-05] MEDS ORDERED: PROTONIX20 MG PO (21:02)
[2025-04-05 21:30] VITALS: BP 128/74; PULSE 76; RESP 18; TEMP 98.3; O2SAT 98
== END 2025-04-05 21:33 | disposition home or self-care (01) ==
LOC: ER 18:09
DX: R10.13 Epigastric pain (principal); K59.00 Constipation, unspecified; I25.10 Atherosclerotic heart disease of native coronary artery without angina pectoris; K44.9 Diaphragmatic hernia without obstruction or gangrene; K76.0 Fatty (change of) liver, not elsewhere classified; K43.9 Ventral hernia without obstruction or gangrene
CPT/HCPCS: 36415; 71260; 74177; 80053; 82550; 83690; 84484; 85025; 93005; 99284; Q9967

== ENCOUNTER → 2025-04-19 | Outpatient (REF) | payer MEDICARE ==
[~2025-04-19] MED LIST changes: +PROTONIX20 MG PO
== END ==
LOC: US 08:12
PROVIDERS: ATTEND Surgery
DX: R11.2 Nausea with vomiting, unspecified (principal); K42.9 Umbilical hernia without obstruction or gangrene; K21.9 Gastro-esophageal reflux disease without esophagitis
CPT/HCPCS: 76705